=== PATIENT | female | born 1980 | race Caucasian/White ===

== ENCOUNTER → 2020-11-13 09:27 | Outpatient (REF) | payer OTHER, SELFPAY ==
--- NOTE | 2020-11-13 09:31 | CA_ITS ---
Acquisition Time: 2020-11-13 09:55:54 Total Exercise Time: 00:11:15 Test Indications: CHEST PAIN Medications: ADDNALL Protocol: NICKO Max HR: 181 BPM 100% of Pred: 180 BPM Max BP: 130/080 mmHG Max Work Load: 13.4 METS Exercise stress test using Nicko protocol, total of 11 min 15 sec. METS 13.40, and TAPHR up to 100%. Pt tolerated well, denies any anginal sx. EKG with isolated PVC's seen in peak exercise and in recovery. No ischemic changes seen. Normotensive response to exercise. Test reviewed with Dr. Todd. Referred By: Payton Eaton Overread By: Feli Hester
== END ==
LOC: HO.CARD 09:27
PROVIDERS: PCP Internal Medicine; Visit Provider Internal Medicine
DX: R07.9 Chest pain, unspecified (principal)
CPT/HCPCS: 93017

== ENCOUNTER → 2020-12-27 13:05 | Outpatient (REF) | payer OTHER, SELFPAY ==
--- NOTE | 2020-12-27 13:10 | ECG_ITS ---
Hook-up date: 2020-12-27 13:24:00 Duration: 26:13:00 Test Indications: UNSPEC. CHEST PAIN Medications: [id number] QRS complexes 17 Ventricular ectopics which represent <1 % of total QRS comp. 45 Supraventricular ectopics which represent <1 % of total QRS comp. * Paced QRS complexs which represent % of total QRS comp. VENTRICULAR ECTOPY 17 Isolated 0 Bigeminal Cycles 0 Couplets 0 Runs 0 Beats in Runs * Beats LONGEST at * BPM at :: -- * Beats FASTEST at * BPM at :: -- SUPRAVENTRICULAR ECTOPY 19 Isolated 0 Couplets 2 Runs 26 Beats in Runs 22 Beats LONGEST at 84 BPM at 16:07:14 2020-12-27 22 Beats FASTEST at 84 BPM at 16:07:14 2020-12-27 HEART RATES 40 MIN at 04:31:49 2020-12-28 80 AVG 191 MAX at 08:43:37 2020-12-28 LONGEST RR 1.6000 secs at 04:31:41 2020-12-28 S-T LEVELS Channel 1 - 128 mm at 13:24:00 2020-12-27 - 128 mm at 13:24:00 2020-12-27 Channel 2 - 128 mm at 13:24:00 2020-12-27 - 128 mm at 13:24:00 2020-12-27 Channel 3 - 128 mm at 03:24:31 -- - 128 mm at 03:24:31 Underlying rhythm is sinus; Average ventricular rate 80/min; About 25% of the time, ventricular rate >100/min; Rare supraventricular/ventricular ectopy; Patient diary stated that she exercised as usual but could not recreate the feeling that occurred on previous occasions. Referred By: Payton Eaton Overread By: ALLISON JOHNSON
== END ==
LOC: HO.CARD 13:05
PROVIDERS: Visit Provider Internal Medicine
DX: R07.9 Chest pain, unspecified (principal)
CPT/HCPCS: 93225; 93226

== ENCOUNTER 2022-03-11 06:58 | Outpatient (REF) | payer OTHER, SELFPAY ==
[2022-03-11 07:46] LABS: MANUAL DIFF FLAG NO
[2022-03-11 07:56] LABS: Basophils Absolute Auto 0.1 X10*3/uL (0.0-0.2); Eosinophils Absolute Auto 0.1 X10*3/uL (0.0-0.4); Eosinophils Percent Auto 2.9 % (0-4); Hematocrit 37.9 % (37.0-47.0); Hemoglobin 12.3 g/dl (12.0-16.0); Imm Gran Abs Auto 0.01 X10*3/uL (0.00-0.03); Imm Gran Pct Auto 0.2 % (0.0-0.4); Lymphocytes Absolute Auto 1.2 X10*3/uL (1.2-4.9); Mean Corpuscular HGB Conc 32.5 g/dl (31.0-35.0); Mean Corpuscular Hemoglobin 29.6 pg (27.0-33.0); Mean Corpuscular Volume 91.3 fL (80.0-98.0); Mean Platelet Volume 10.7 fL (9.4-12.3); Monocytes Absolute Auto 0.3 X10*3/uL (0.1-1.2); Monocytes Percent Auto 6.5 % (2-11); Neutrophils Percent Auto 63.4 % (45-73); Platelet Count 212 X10*3/uL (160-400); Red Blood Count 4.15 X10*6/uL (4.20-5.50); Red Cell Distribution Width 12.4 % (11.0-16.0); Retic HGB Equivalent 34.2 pg (30.0-35.0); Reticulocytes Absolute 0.042 X10*6/uL (0.026-0.095); White Blood Count 4.8 X10*3/uL (4.8-10.8)
[2022-03-11 08:09] LABS: Estimated Average Glucose 100 mg/dL; Hemoglobin A1c % 5.1 %
[2022-03-11 08:20] LABS: Alanine Aminotransferase 12 U/L (0-31); Albumin Level 4.3 g/dL (3.5-5.0); Alkaline Phosphatase 55 U/L (39-117); Anion Gap 14 (12-20); Aspartate Amino Transferase 14 U/L (5-31); Bilirubin Total 0.9 mg/dL (0.0-1.0); Blood Urea Nitrogen 12 mg/dL (9-16); Carbon Dioxide 24 mmol/L (22-29); Chloride 105 mmol/L (96-108); Cholesterol 209 mg/dL; Estimated Glomerular Filt Rate > 60; Glucose Random 84 mg/dL (60-115); HDL Cholesterol 67 mg/dL; Iron 120 mcg/dL (30-160); LDL Cholesterol Calculated 128 mg/dl; Percent Iron Saturation 32 % (15-50); Potassium 3.8 mmol/L (3.3-5.1); Sodium 139 mmol/L (135-145); Total Iron Binding Capacity 379 mcg/dL (228-428); Total Protein 6.7 g/dL (6.5-8.0); Triglycerides 73 mg/dL; Unsaturated Iron Binding 259 ug/dL
[2022-03-11 08:45] LABS: Ferritin 20 ng/mL (10-250); Free T4 (Free Thyroxine) 0.85 ng/dL (0.71-1.85); Thyroid Stimulating Hormone 1.72 uIU/mL (0.32-4.0); Vitamin D 25-OH Total 31.9 ng/mL (>30)
[2022-03-11 11:16] LABS: Folate 18.2 ng/mL (> or = 4.0); Vitamin B12 614 pg/mL (200-900)
== END 2022-03-11 06:59 | disposition home or self-care (01) ==
LOC: HO.LAB 06:58
PROVIDERS: PCP Internal Medicine; Visit Provider Internal Medicine
DX: F90.0 Attention-deficit hyperactivity disorder, predominantly inattentive type (principal); F41.1 Generalized anxiety disorder; E78.00 Pure hypercholesterolemia, unspecified
CPT/HCPCS: 36415; 80053; 80061; 82306; 82607; 82728; 82746; 83036; 83540; 84439; 84443; 85025; 85045; 86900; 86901

== ENCOUNTER 2022-10-25 12:42 | Outpatient (REF) | payer OTHER, SELFPAY ==
[2022-10-25 14:54] LABS: HCG Quantitative < 2 mIU/mL
== END 2022-10-25 12:43 | disposition home or self-care (01) ==
LOC: HO.HMGCLDS 12:42
PROVIDERS: PCP Internal Medicine; Visit Provider Physician Assistant
DX: Z01.89 Encounter for other specified special examinations (principal); N92.6 Irregular menstruation, unspecified
CPT/HCPCS: 36415; 84702

== ENCOUNTER 2023-05-02 08:16 | Outpatient (REF) | payer OTHER, SELFPAY ==
[2023-05-02 08:31] LABS: MANUAL DIFF FLAG NO
[2023-05-02 08:58] LABS: Basophils Absolute Auto 0.1 X10*3/uL (0.0-0.2); Basophils Percent Auto 1.1 % (0-2); Eosinophils Absolute Auto 0.2 X10*3/uL (0.0-0.4); Eosinophils Percent Auto 3.8 % (0-4); Hematocrit 38.2 % (37.0-47.0); Hemoglobin 12.1 g/dl (12.0-16.0); Lymphocytes Absolute Auto 1.4 X10*3/uL (1.2-4.9); Lymphocytes Percent Auto 31.6 % (20-40); Mean Corpuscular HGB Conc 31.7 g/dl (31.0-35.0); Mean Corpuscular Hemoglobin 28.3 pg (27.0-33.0); Mean Corpuscular Volume 89.3 fL (80.0-98.0); Mean Platelet Volume 10.5 fL (9.4-12.3); Monocytes Absolute Auto 0.5 X10*3/uL (0.1-1.2); Monocytes Percent Auto 10.2 % (2-11); Neutrophils Absolute Auto 2.4 x10*3/uL (2.0-8.3); Neutrophils Percent Auto 53.3 % (45-73); Platelet Count 242 X10*3/uL (160-400); Red Blood Count 4.28 X10*6/uL (4.20-5.50); Red Cell Distribution Width 14.1 % (11.0-16.0); White Blood Count 4.5 X10*3/uL (4.8-10.8)
[2023-05-02 09:46] LABS: Alanine Aminotransferase 11 U/L (0-31); Albumin Level 4.5 g/dL (3.5-5.0); Alkaline Phosphatase 53 U/L (39-117); Anion Gap 16 (12-20); Aspartate Amino Transferase 14 U/L (5-31); Bilirubin Total 0.6 mg/dL (0.0-1.0); Blood Urea Nitrogen 10 mg/dL (9-16); Calcium 9.7 mg/dL (8.4-10.2); Carbon Dioxide 23 mmol/L (22-29); Chloride 105 mmol/L (96-108); Cholesterol 226 mg/dL; Estimated Glomerular Filt Rate > 60; Glucose Random 83 mg/dL (60-115); HDL Cholesterol 73 mg/dL; LDL Cholesterol Calculated 135 mg/dl; Potassium 3.9 mmol/L (3.3-5.1); Sodium 140 mmol/L (135-145); Total Protein 7.3 g/dL (6.5-8.0); Triglycerides 90 mg/dL
[2023-05-02 09:47] LABS: Free T4 (Free Thyroxine) 0.81 ng/dL (0.71-1.85); Thyroid Stimulating Hormone 1.76 uIU/mL (0.32-4.0); Vitamin D 25-OH Total 36.3 ng/mL (>30)
[2023-05-02 10:00] LABS: Folate 15.2 ng/mL (> or = 4.0); Vitamin B12 758 pg/mL (200-900)
== END 2023-05-02 08:17 | disposition home or self-care (01) ==
LOC: HO.LAB 08:16
PROVIDERS: PCP Internal Medicine; Visit Provider Internal Medicine
DX: F90.0 Attention-deficit hyperactivity disorder, predominantly inattentive type (principal); E78.00 Pure hypercholesterolemia, unspecified; E55.9 Vitamin D deficiency, unspecified
CPT/HCPCS: 36415; 80053; 80061; 82306; 82607; 82746; 84439; 84443; 85025

== ENCOUNTER 2023-06-02 11:22 | Outpatient (AMB) | payer OTHER, SELFPAY ==
[2023-06-02 11:26] VITALS: BP 124/72; PULSE 77; O2SAT 96; BMI 20.4
--- NOTE | 2023-06-02 11:26 | MHC.PC.OV ---
Vital Signs 06/02/23 11:26 Height 5 ft 8 in Weight 134 lb BMI 20.4 BP 124/72 Blood Pressure Location Lt brachial Position Sitting Pulse 77 Pulse Source Pulse Oximeter Pulse Oximetry (%) 96 Oxygen Delivery Method Room Air Intake Visit Reasons: 3 MONTH F/U Allergies No Known Allergies Allergy (Verified 06/02/23 11:26) Tobacco use date assessed: 11/06/22 Dental Screening Dental Screen Date: 06/02/23 Did you have a dental visit in the last 12 months?: Yes Did you have a dental problem in the last 6 months where you did not have access to dental care?: No Was dental information given to patient?: Patient has dentist HPI 3 MONTH F/U HPI Details 42-year-old female with a history of ADHD and generalized anxiety disorder coming in for follow-up. Last seen for annual physical in February 2023 and blood work was requested. Patient was reminded about mammogram. [facility] Medical History ADD (attention deficit disorder) Allergic rhinitis Anemia COVID-19 virus infection Leukopenia Surgical History History of wisdom tooth extraction Family History (Updated 02/13/23 @ 11:53 by Payton Eaton MD) Father Hypertension Mother Diabetes Depression Maternal Grandmother Diabetes Maternal Grandfather Diabetes Colon cancer Paternal Grandmother Breast cancer Paternal Grandfather Aneurysm FH: prostate cancer Maternal Uncle Diabetes Family/Other Breast cancer Social History (Updated 02/13/23 @ 11:53 by Payton Eaton MD) Housing: House Alcohol intake: current Alcohol intake frequency: a few times a month Patient Tobacco Use Status: Former Tobacco user Tobacco use type: Cigarette Years Smoked: 17 years old x 2 years e-Cigarette/Vaping Use: Never Used Second Hand Smoke Exposure: No service: No Current occupational status: employed Current occupational exposures/hazards: No Cognitive needs: No Hearing needs: No Vision needs: No Questionnaire PHQ-9 Over the last 2 weeks, how often have you been bothered by any of the following problems? 1. Little interest or pleasure in doing things: not at all 2. Feeling down, depressed, or hopeless: not at all 3. Trouble falling or staying asleep, or sleeping too much: not at all 4. Feeling tired or having little energy: not at all 5. Poor appetite or overeating: not at all 6. Feeling bad about yourself - or that you are a failure or have let yourself or your family down: not at all 7. Trouble concentrating on things, such as reading the newspaper or watching television: not at all 8. Moving or speaking so slowly that other people could have noticed. Or the opposite - being so fidgety or restless that you have been moving around a lot more than usual: not at all 9. Thoughts that you would be better off or of hurting yourself in some way: not at all Total score: 0 Depression Screening Interpretation: Negative Source: Developed by Drs. Jay Iverson, Radha Langford, Chito Ortiz and colleagues, with an educational jory from [employer]. Thrive Questionnaire Date Thrive assessed: 02/13/23 AUDIT C Alcohol Use Questionnaire (AUDIT-C) 1. How often do you have a drink containing alcohol?: 2-4 times a month 2. How many drinks containing alcohol do you have on a typical day when you are drinking?: 1 or 2 3. How often do you have six or more drinks on one occasion?: Never Total Score: 2 MIKO-7 AMB Questionnaire MIKO-7 Date MIKO - 7 assessed: 11/06/22 Source: Developed by Drs. Jay Iverson, Radha Langford, Chito Ortiz and colleagues, with an educational jory from [employer]. Physical exam (Primary Care) Vital Signs: Oxygen Delivery Method Room Air 06/02/23 11:26 Tobacco/Smoking Status: Tobacco use Status Tobacco use date assessed 11/06/22 02/13/23 11:22 Patient Tobacco Use Status Former Tobacco user 02/13/23 11:53 Tobacco use type Cigarette 02/13/23 11:53 e-Cigarette/Vaping Use Never Used 02/13/23 11:53 Depression Screening Interpretation: Negative Thrive Assessment: Date of Thrive Assessment Date Thrive assessed 02/13/23 02/13/23 11:22 Const General: alert; No acute distress Eyes Conjunctivae: conjunctivae normal Resp Auscultation: clear to auscultation bilaterally Cardio Rate: regular rate Rhythm: regular rhythm GI Inspection: Yes normal to inspection Extrem General: Yes normal to inspection and No edema Assessment and Plan Assessment & Plan (1) ADD (attention deficit disorder): Comment: has therapist monthly Code(s): F98.8 - Other specified behavioral and emotional disorders with onset usually occurring in childhood and adolescence Qualifiers: Attention deficit-hyperactivity disorder type: predominantly inattentive Hyperactivity presence: present Qualified Code(s): F90.0 - Attention-deficit hyperactivity disorder, predominantly inattentive type Plan: Continue present medication and therapy (2) Generalized anxiety disorder: Comment: Private therapist Code(s): F41.1 - Generalized anxiety disorder Plan: Continue with counseling and therapy (3) Hypercholesterolemia: Code(s): E78.00 - Pure hypercholesterolemia, unspecified Plan: Avoid fried foods, chicken skin, eggs, butter margarine, pastries and meat. Be it pork or beef they have a lot of cholesterol LDL goal of less than 130 and triglyceride of less than 150 (4) Breast cancer screening by mammogram: Code(s): Z12.31 - Encounter for screening mammogram for malignant neoplasm of breast Plan: Patient's reminded about mammogram Coding Level of Care Code Est Pt Level 4 (88964) Diagnoses ADD (attention deficit disorder) F90.0 Attention deficit-hyperactivity disorder type: predominantly inattentive Hyperactivity presence: present Generalized anxiety disorder F41.1 Hypercholesterolemia E78.00 Breast cancer screening by mammogram Z12.31
== END 2023-06-02 11:48 | disposition home or self-care (01) ==
PROVIDERS: PCP Internal Medicine; Visit Provider Internal Medicine
DX: F90.0 Attention-deficit hyperactivity disorder, predominantly inattentive type (principal); F41.1 Generalized anxiety disorder; E78.00 Pure hypercholesterolemia, unspecified; Z12.31 Encounter for screening mammogram for malignant neoplasm of breast
CPT/HCPCS: 99214

== ENCOUNTER 2023-09-16 10:56 | Outpatient (AMB) | payer OTHER, SELFPAY ==
[2023-09-16 10:58] VITALS: BP 114/76; PULSE 58; O2SAT 96; BMI 21.0
--- NOTE | 2023-09-16 10:58 | A.OFFPC_ITS ---
Vital Signs 09/16/23 10:58 Height 5 ft 8 in Weight 138 lb 2 oz BMI 21.0 BP 114/76 Blood Pressure Location Lt brachial Position Sitting Pulse 58 Pulse Source Pulse Oximeter Pulse Oximetry (%) 96 Oxygen Delivery Method Room Air Intake Visit Reasons: 3mon F/U Manager [employer] Required: No Accompanied by: Self / Same As Patient Allergies No Known Allergies Allergy (Verified 09/16/23 10:59) Tobacco use date assessed: 11/06/22 HPI 3mon F/U HPI Details 43-year-old female with a history of ADD generalized anxiety disorder and hypercholesterolemia last seen in May 2023. Patient is here for follow- up. Patient has been advised mammogram. [facility] Medical History ADD (attention deficit disorder) Allergic rhinitis Anemia COVID-19 virus infection Leukopenia Surgical History History of wisdom tooth extraction Family History Father Hypertension Mother Diabetes Depression Maternal Grandmother Diabetes Maternal Grandfather Diabetes Colon cancer Paternal Grandmother Breast cancer Paternal Grandfather Aneurysm FH: prostate cancer Maternal Uncle Diabetes Family/Other Breast cancer Social History Housing: House Alcohol intake: current Alcohol intake frequency: a few times a month Patient Tobacco Use Status: Former Tobacco user Tobacco use type: Cigarette Years Smoked: 17 years old x 2 years e-Cigarette/Vaping Use: Never Used Second Hand Smoke Exposure: No service: No Current occupational status: employed Current occupational exposures/hazards: No Cognitive needs: No Hearing needs: No Vision needs: No Questionnaire Thrive Questionnaire Date Thrive assessed: 02/13/23 MIKO-7 AMB Questionnaire MIKO-7 Date MIKO - 7 assessed: 11/06/22 Source: Developed by Drs. Jay Iverson, Radha Langford, Chito Ortiz and colleagues, with an educational jory from [employer]. Physical exam (Primary Care) Vital Signs: Oxygen Delivery Method Room Air 09/16/23 10:58 BMI result Body Mass Index 21.0 Tobacco/Smoking Status: Tobacco use Status Tobacco use date assessed 11/06/22 06/02/23 11:28 Patient Tobacco Use Status Former Tobacco user 06/02/23 11:28 Tobacco use type Cigarette 06/02/23 11:28 e-Cigarette/Vaping Use Never Used 06/02/23 11:28 Thrive Assessment: Date of Thrive Assessment Date Thrive assessed 02/13/23 06/02/23 11:28 Const General: alert; No acute distress Eyes Conjunctivae: conjunctivae normal Resp Auscultation: clear to auscultation bilaterally Cardio Rate: regular rate Rhythm: regular rhythm GI Inspection: Yes normal to inspection Extrem General: Yes normal to inspection and No edema Assessment and Plan Assessment & Plan (1) ADD (attention deficit disorder): Comment: has therapist monthly Code(s): F98.8 - Other specified behavioral and emotional disorders with onset usually occurring in childhood and adolescence Qualifiers: Attention deficit-hyperactivity disorder type: predominantly inattentive Hyperactivity presence: present Qualified Code(s): F90.0 - Attention-deficit hyperactivity disorder, predominantly inattentive type Plan: Continue with present medication and counseling (2) Generalized anxiety disorder: Comment: Private therapist Code(s): F41.1 - Generalized anxiety disorder Plan: Continue with counseling and therapy (3) Hypercholesterolemia: Code(s): E78.00 - Pure hypercholesterolemia, unspecified Plan: Avoid fried foods, chicken skin, eggs, butter margarine, pastries and meat. Be it pork or beef they have a lot of cholesterol Coding Level of Care Code Est Pt Level 4 (43143) Diagnoses Attention deficit hyperactivity disorder (ADHD), predominantly inattentive type F90.0 Attention deficit-hyperactivity disorder type: predominantly inattentive Hyperactivity presence: present Generalized anxiety disorder F41.1 Hypercholesterolemia E78.00
== END 2023-09-16 11:13 | disposition home or self-care (01) ==
PROVIDERS: PCP Internal Medicine; Visit Provider Internal Medicine
DX: F90.0 Attention-deficit hyperactivity disorder, predominantly inattentive type (principal); F41.1 Generalized anxiety disorder; E78.00 Pure hypercholesterolemia, unspecified
CPT/HCPCS: 99214

== ENCOUNTER 2024-01-05 10:38 | Outpatient (AMB) | payer OTHER, SELFPAY ==
[2024-01-05 10:39] VITALS: BP 128/72; PULSE 65; O2SAT 98; BMI 21.1
--- NOTE | 2024-01-05 10:39 | A.OFFPC_ITS ---
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 Patient is here for med check. COUNTS INCLUDE 234 BEDS AT THE [facility] Medical History (Updated 01/05/24 @ 10:57 by Payton Eaton MD) Breast cancer screening by mammogram COVID-19 virus infection Leukopenia Allergic rhinitis ADD (attention deficit disorder) Anemia Surgical History History of wisdom tooth extraction Family History Father Hypertension Mother Diabetes Depression Maternal Grandmother Diabetes Maternal Grandfather Diabetes Colon cancer Paternal Grandmother Breast cancer Paternal Grandfather Aneurysm FH: prostate cancer Maternal Uncle Diabetes Family/Other Breast cancer Social History Housing: House Alcohol intake: current Alcohol intake frequency: a few times a month Patient Tobacco Use Status: Former Tobacco user Tobacco use type: Cigarette Years Smoked: 17 years old x 2 years e-Cigarette/Vaping Use: Never Used Second Hand Smoke Exposure: No service: No Current occupational status: employed Current occupational exposures/hazards: No Cognitive needs: No Hearing needs: No Vision needs: No Questionnaire PHQ-9 Over the last 2 weeks, how often have you been bothered by any of the following problems? 1. Little interest or pleasure in doing things: not at all 2. Feeling down, depressed, or hopeless: not at all 3. Trouble falling or staying asleep, or sleeping too much: not at all 4. Feeling tired or having little energy: not at all 5. Poor appetite or overeating: not at all 6. Feeling bad about yourself - or that you are a failure or have let yourself or your family down: not at all 7. Trouble concentrating on things, such as reading the newspaper or watching television: not at all 8. Moving or speaking so slowly that other people could have noticed. Or the opposite - being so fidgety or restless that you have been moving around a lot more than usual: not at all 9. Thoughts that you would be better off or of hurting yourself in some way: not at all Total score: 0 Depression Screening Interpretation: Negative Depression Screening Done: Yes Source: Developed by Drs. Jay Iverson, Radha Langford, Chito Ortiz and colleagues, with an educational jory from [employer]. Thrive Questionnaire Date Thrive assessed: 02/13/23 AUDIT C Alcohol Use Questionnaire (AUDIT-C) 1. How often do you have a drink containing alcohol?: 2-4 times a month 2. How many drinks containing alcohol do you have on a typical day when you are drinking?: 1 or 2 3. How often do you have six or more drinks on one occasion?: Never Total Score: 2 MIKO-7 AMB Questionnaire MIKO-7 Date MIKO - 7 assessed: 01/05/24 Source: Developed by Drs. Jay Iverson, Radha Langford, Chito Ortiz and colleagues, with an educational jory from [employer]. Physical exam (Primary Care) Vital Signs: Last Vital Signs Pulse 65 01/05/24 10:39 BP 128/72 01/05/24 10:39 Pulse Ox 98 01/05/24 10:39 Oxygen Delivery Method Room Air 01/05/24 10:39 BMI result Body Mass Index 21.1 Tobacco/Smoking Status: Tobacco use Status Tobacco use date assessed 01/05/24 01/05/24 10:45 Patient Tobacco Use Status Former Tobacco user 01/05/24 10:45 Tobacco use type Cigarette 01/05/24 10:45 e-Cigarette/Vaping Use Never Used 01/05/24 10:45 PHQ-9: PHQ-9 Score PHQ-9: Total score 0 01/05/24 10:45 Depression Screening Interpretation: Negative Thrive Assessment: Date of Thrive Assessment Date Thrive assessed 02/13/23 01/05/24 10:45 Const General: alert; No acute distress Eyes Conjunctivae: conjunctivae normal Resp Auscultation: clear to auscultation bilaterally Cardio Rate: regular rate Rhythm: regular rhythm GI Inspection: Yes normal to inspection Extrem General: Yes normal to inspection and No edema Assessment and Plan Assessment & Plan (1) ADD (attention deficit disorder): Comment: has therapist monthly Code(s): F98.8 - Other specified behavioral and emotional disorders with onset usually occurring in childhood and adolescence Qualifiers: Hyperactivity presence: present Attention deficit-hyperactivity disorder type: predominantly inattentive Qualified Code(s): F90.0 - Attention- deficit hyperactivity disorder, predominantly inattentive type Plan: Continue with present medication and counseling. (2) Generalized anxiety disorder: Comment: Private therapist Code(s): F41.1 - Generalized anxiety disorder Plan: Continue with counseling (3) Nail dystrophy: Code(s): L60.3 - Nail dystrophy Plan: Will continue to monitor for now Coding Level of Care Code Est Pt Level 3 (92366) Diagnoses Attention deficit hyperactivity disorder (ADHD), predominantly inattentive type F90.0 Hyperactivity presence: present Attention deficit-hyperactivity disorder type: predominantly inattentive Generalized anxiety disorder F41.1 Nail dystrophy L60.3
== END 2024-01-05 11:04 | disposition home or self-care (01) ==
PROVIDERS: PCP Internal Medicine; Visit Provider Internal Medicine
DX: F90.0 Attention-deficit hyperactivity disorder, predominantly inattentive type (principal); F41.1 Generalized anxiety disorder; L60.3 Nail dystrophy
CPT/HCPCS: 99213

== ENCOUNTER 2024-03-17 11:33 | Outpatient (AMB) | payer OTHER, SELFPAY ==
[2024-03-17 11:43] VITALS: BP 124/86; PULSE 60; O2SAT 98; BMI 21.0
--- NOTE | 2024-03-17 11:43 | A.OFFPC_ITS ---
Vital Signs 03/17/24 11:43 Height 5 ft 8 in Weight 138 lb 0.4 oz BMI 21.0 BP 124/86 Blood Pressure Location Lt brachial Position Sitting Pulse 60 Pulse Source Pulse Oximeter Pulse Oximetry (%) 98 Oxygen Delivery Method Room Air Intake Visit Reasons: Annual Exam Herb Grower Required: No Allergies No Known Allergies Allergy (Verified 03/17/24 11:44) Medication List - Last Reconciled 03/17/24 by Payton Eaton MD ascorbate calcium (vitamin C) 500 mg PO DAILY hfvfzn-ltxc-znnr-levomef-silic 10-50-500-0.5 mg caps PO dextroamphetamine-amphetamine 20 mg ER (Adderall XR) 20 mg PO DAILY ferrous sulfate (Feosol) 325 mg PO DAILY [GYMEMMA ] [KAVA KAVA ] loratadine (Claritin) 10 mg PO DAILY PRN multivitamin 1 tab PO DAILY [RESCUE REMEDY ] Tobacco use date assessed: 03/17/24 Dental Screening Dental Screen Date: 03/17/24 Did you have a dental visit in the last 12 months?: Yes Did you have a dental problem in the last 6 months where you did not have access to dental care?: No Was dental information given to patient?: Patient has dentist HPI Annual Exam HPI Details 43-year-old female with ADD and generali zed anxiety disorder coming in for physical exam last seen in 01/24/2024. Mammogram is up-to-date [facility] Medical History (Updated 01/05/24 @ 10:57 by Payton Eaton MD) Breast cancer screening by mammogram COVID-19 virus infection Leukopenia Allergic rhinitis ADD (attention deficit disorder) Anemia Surgical History History of wisdom tooth extraction Family History (Updated 03/17/24 @ 12:12 by Payton Eaton MD) Father Hypertension Mother Diabetes Depression Maternal Grandmother Diabetes Maternal Grandfather Diabetes Colon cancer Paternal Grandmother Breast cancer Paternal Grandfather Aneurysm FH: prostate cancer Maternal Uncle Diabetes Family/Other Breast cancer Maternal Grandmother FH: prostate cancer Social History (Updated 03/17/24 @ 12:13 by Payton Eaton MD) Housing: House Alcohol intake: current Alcohol intake frequency: a few times a month Comment: 2 x a month 2 drinks Patient Tobacco Use Status: Former Tobacco user Tobacco use type: Cigarette Years Smoked: 17 years old x 2 years e-Cigarette/Vaping Use: Never Used Second Hand Smoke Exposure: No service: No Current occupational status: employed Current occupational exposures/hazards: No Cognitive needs: No Hearing needs: No Vision needs: No Questionnaire PHQ-9 Over the last 2 weeks, how often have you been bothered by any of the following problems? 1. Little interest or pleasure in doing things: not at all 2. Feeling down, depressed, or hopeless: not at all 3. Trouble falling or staying asleep, or sleeping too much: not at all 4. Feeling tired or having little energy: not at all 5. Poor appetite or overeating: not at all 6. Feeling bad about yourself - or that you are a failure or have let yourself or your family down: not at all 7. Trouble concentrating on things, such as reading the newspaper or watching television: not at all 8. Moving or speaking so slowly that other people could have noticed. Or the opposite - being so fidgety or restless that you have been moving around a lot more than usual: not at all 9. Thoughts that you would be better off or of hurting yourself in some way: not at all Total score: 0 Depression Screening Interpretation: Negative Depression Screening Done: Yes Source: Developed by Drs. Jay Iverson, Radha Langford, Chito Ortiz and colleagues, with an educational jory from [employer]. Thrive Questionnaire Date Thrive assessed: 03/17/24 I am a: Patient What is your living situation today?: I have a steady place to live Within the past 12 months, did the food you bought not last and you didn't have the money to get more?: Never true Within the past 12 months, did you worry whether your food would run out before you got money to buy more?: Never true Do you have trouble paying for medicines?: No Do you have trouble getting transportation to medical appointments?: No Do you have trouble paying your heating and electricity bill?: No Do you have trouble taking care of your child, family member or friend?: No Do you have trouble with day-to-day activities such as bathing, preparing meals, shopping, managing finances, etc.?: No Are you currently unemployed and looking for a job?: No Are you interested in more education?: No Please select the resources that you would like help with: None Currently or been in a relationship where the following occur: no concerns reported THRIVE Score: 0 AUDIT C Alcohol Use Questionnaire (AUDIT-C) 1. How often do you have a drink containing alcohol?: 2-4 times a month 2. How many drinks containing alcohol do you have on a typical day when you are drinking?: 1 or 2 3. How often do you have six or more drinks on one occasion?: Never Total Score: 2 MIKO-7 AMB Questionnaire MIKO-7 Date MIKO - 7 assessed: 03/17/24 Feeling nervous, anxious, or on edge: 0 = Not at all Not being able to stop or control worryin = Not at all Worrying too much about different things: 0 = Not at all Trouble relaxin = Not at all Being so restless that it is hard to sit still: 0 = Not at all Becoming easily annoyed or irritable: 0 = Not at all Feeling afraid as if something awful might happen: 0 = Not at all Total MIKO-7 score (0-4 normal; 5-9 mild; 10-14 moderate; 15-21 severe): 0 Source: Developed by Drs. Jay Iverson, Radha Langford, Chito Ortiz and colleagues, with an educational jory from [employer]. MIKO-7 Assessment Billing MIKO-7 Assessment Tool: MIKO-7 Assessment 09774 Review of Systems Const Denies poor appetite and Denies weakness Eyes Denies no additional complaints ENT Reports Normal hearing present, Denies dizziness, Denies nasal congestion, Denies tinnitus and Denies sore throat Card Denies chest pain, Denies syncope, Denies rapid heart rate and Denies dyspnea Resp Denies cough and Denies dyspnea GI Denies change in stool character, Reports constipation, Denies diarrhea, Denies nausea and Denies vomiting Denies urinary frequency, Denies difficulty voiding and Denies dysuria Neuro Reports Normal hearing present, Denies confusion, Denies dizziness, Denies syncope and Denies weakness Psych Denies confusion Physical exam (Primary Care) Vital Signs: Last Vital Signs Pulse 60 03/17/24 11:43 BP 124/86 03/17/24 11:43 Pulse Ox 98 03/17/24 11:43 Oxygen Delivery Method Room Air 03/17/24 11:43 BMI result Body Mass Index 21.0 Tobacco/Smoking Status: Tobacco use Status Tobacco use date assessed 03/17/24 03/17/24 11:44 Patient Tobacco Use Status Former Tobacco user 03/17/24 11:44 Tobacco use type Cigarette 03/17/24 11:44 e-Cigarette/Vaping Use Never Used 03/17/24 11:44 PHQ-9: PHQ-9 Score PHQ-9: Total score 0 03/17/24 11:49 Depression Screening Interpretation: Negative Thrive Assessment: Date of Thrive Assessment Date Thrive assessed 03/17/24 03/17/24 11:44 Currently or been in a relationship where the following occur: no concerns reported Const General: No confusion Orientation/consciousness: No confusion HENMT Head: Yes normocephalic Ears: external ears normal and TM's normal bilaterally Face and sinus: Yes normal facial exam Mouth: moist mucous membranes Throat: Yes tonsils normal Eyes Conjunctivae: conjunctivae normal Pupils: Equal, round and reactive pupils present and Pupil accommodation reflex normal Direct Ophthalmoscopy: normal light reflex Neck Neck: No lymphadenopathy Thyroid: Thyroid normal Chest Chest palpation & inspection: normal inspection of the chest Resp Effort & Inspection: normal respiratory effort and no audible wheezes Auscultation: clear to auscultation bilaterally, no crackles, no wheezes and lung sounds not diminished Cardio Rate: regular rate Rhythm: regular rhythm Peripheral pulses: radial pulses present and dorsalis pedis present GI Palpation (GI): no masses Auscultation: normal bowel sounds and normoactive bowel sounds Rectal Exam - Female: deferred Skin General skin exam: no rashes or lesions noted Rashes: no rashes Neuro General: No confusion Cranial nerves: Yes Equal, round and reactive pupils present and Yes Normal hearing present Cognition (Neuro): normal cognition Gait exam (Neuro): Normal gait present Motor exam (neuro): 5/5 motor strength present throughout Deep tendon reflexes (DTR's): Right brachioradialis reflex intensity grade: 2+, Left brachioradialis reflex intensity grade: 2+, Right patellar reflex intensity grade: 2+ and Left patellar reflex intensity grade: 2+ Extrem General: No edema Assessment and Plan Assessment & Plan (1) Annual physical exam: Code(s): Z00.00 - Encounter for general adult medical examination without abnormal findings Plan: Patient is advised to eat healthy, keep well hydrated, keep active and have adequate sleep. (2) ADD (attention deficit disorder): Comment: has therapist monthly Code(s): F98.8 - Other specified behavioral and emotional disorders with onset usually occurring in childhood and adolescence Qualifiers: Hyperactivity presence: present Attention deficit-hyperactivity disorder type: predominantly inattentive Qualified Code(s): F90.0 - Attention- deficit hyperactivity disorder, predominantly inattentive type Plan: Continue with present medication (3) Generalized anxiety disorder: Comment: Private therapist Code(s): F41.1 - Generalized anxiety disorder Plan: Stable (4) Hypercholesterolemia: Code(s): E78.00 - Pure hypercholesterolemia, unspecified Plan: Avoid fried foods, chicken skin, eggs, butter margarine, pastries and meat. Be it pork or beef they have a lot of cholesterol 04/2023 last blood work LDL goal of less than 130 and triglyceride of less than 150 Coding Level of Care Code Est Pt Prev Care 40-64y(95755) Diagnoses Annual physical exam Z00.00 Attention deficit hyperactivity disorder (ADHD), predominantly inattentive type F90.0 Hyperactivity presence: present Attention deficit-hyperactivity disorder type: predominantly inattentive Generalized anxiety disorder F41.1 Hypercholesterolemia E78.00 Additional Codes MIKO-7 Assessment Billing - MIKO-7 Assessment Tool: MIKO-7 Assessment [id number] ([id number])
== END 2024-03-17 12:27 | disposition home or self-care (01) ==
PROVIDERS: PCP Internal Medicine; Visit Provider Internal Medicine
DX: Z00.00 Encounter for general adult medical examination without abnormal findings (principal); F90.0 Attention-deficit hyperactivity disorder, predominantly inattentive type; F41.1 Generalized anxiety disorder; E78.00 Pure hypercholesterolemia, unspecified
CPT/HCPCS: 99396

== ENCOUNTER 2024-06-17 09:29 | Outpatient (AMB) | payer OTHER, SELFPAY ==
[2024-06-17 09:34] VITALS: BP 122/62; PULSE 71; O2SAT 98; BMI 20.1
--- NOTE | 2024-06-17 09:34 | MHC.PC.OV ---
Vital Signs 06/17/24 09:34 Height 5 ft 8 in Weight 132 lb BMI 20.1 BP 122/62 Blood Pressure Location Lt brachial Position Sitting Pulse 71 Pulse Source Pulse Oximeter Pulse Oximetry (%) 98 Oxygen Delivery Method Room Air Intake Visit Reasons: 3M med Follow Up Allergies No Known Allergies Allergy (Verified 06/17/24 09:34) Tobacco use date assessed: 03/17/24 Dental Screening Dental Screen Date: 03/17/24 HPI 3M med Follow Up HPI Details 43-year-old female with attention deficit disorder generalized anxiety disorder hypercholesterolemia last seen in March 2024 coming in for follow-up. Patient is up-to-date with mammogram [facility] Medical History (Updated 01/05/24 @ 10:57 by Payton Eaton MD) Breast cancer screening by mammogram COVID-19 virus infection Leukopenia Allergic rhinitis ADD (attention deficit disorder) Anemia Surgical History History of wisdom tooth extraction Family History (Updated 03/17/24 @ 12:12 by Payton Eaton MD) Father Hypertension Mother Diabetes Depression Maternal Grandmother Diabetes Maternal Grandfather Diabetes Colon cancer Paternal Grandmother Breast cancer Paternal Grandfather Aneurysm FH: prostate cancer Maternal Uncle Diabetes Family/Other Breast cancer Maternal Grandmother FH: prostate cancer Social History (Updated 03/17/24 @ 12:13 by Payton Eaton MD) Housing: House Alcohol intake: current Alcohol intake frequency: a few times a month Comment: 2 x a month 2 drinks Patient Tobacco Use Status: Former Tobacco user Tobacco use type: Cigarette Years Smoked: 17 years old x 2 years e-Cigarette/Vaping Use: Never Used Second Hand Smoke Exposure: No service: No Current occupational status: employed Current occupational exposures/hazards: No Cognitive needs: No Hearing needs: No Vision needs: No Questionnaire PHQ-9 Over the last 2 weeks, how often have you been bothered by any of the following problems? 1. Little interest or pleasure in doing things: not at all 2. Feeling down, depressed, or hopeless: not at all 3. Trouble falling or staying asleep, or sleeping too much: not at all 4. Feeling tired or having little energy: not at all 5. Poor appetite or overeating: not at all 6. Feeling bad about yourself - or that you are a failure or have let yourself or your family down: not at all 7. Trouble concentrating on things, such as reading the newspaper or watching television: not at all 8. Moving or speaking so slowly that other people could have noticed. Or the opposite - being so fidgety or restless that you have been moving around a lot more than usual: not at all 9. Thoughts that you would be better off or of hurting yourself in some way: not at all Total score: 0 Depression Screening Interpretation: Negative Depression Screening Done: Yes Source: Developed by Drs. Jay Iverson, Radha Langford, Chito Ortiz and colleagues, with an educational jory from [employer]. Thrive Questionnaire Date Thrive assessed: 03/17/24 AUDIT C Alcohol Use Questionnaire (AUDIT-C) 1. How often do you have a drink containing alcohol?: 2-4 times a month 2. How many drinks containing alcohol do you have on a typical day when you are drinking?: 1 or 2 3. How often do you have six or more drinks on one occasion?: Never Total Score: 2 MIKO-7 AMB Questionnaire MIKO-7 Date MIKO - 7 assessed: 03/17/24 Source: Developed by Drs. Jay Iverson, Radha Langford, Chito Ortiz and colleagues, with an educational jory from [employer]. Physical exam (Primary Care) Vital Signs: Last Vital Signs Pulse 71 06/17/24 09:34 BP 122/62 06/17/24 09:34 Pulse Ox 98 06/17/24 09:34 Oxygen Delivery Method Room Air 06/17/24 09:34 BMI result Body Mass Index 20.1 Tobacco/Smoking Status: Tobacco use Status Tobacco use date assessed 03/17/24 06/17/24 09:40 Patient Tobacco Use Status Former Tobacco user 06/17/24 09:40 Tobacco use type Cigarette 06/17/24 09:40 e-Cigarette/Vaping Use Never Used 06/17/24 09:40 PHQ-9: PHQ-9 Score PHQ-9: Total score 0 06/17/24 09:40 Depression Screening Interpretation: Negative Thrive Assessment: Date of Thrive Assessment Date Thrive assessed 03/17/24 06/17/24 09:40 Const General: alert; No acute distress Eyes Conjunctivae: conjunctivae normal Resp Auscultation: clear to auscultation bilaterally Cardio Rate: regular rate Rhythm: regular rhythm GI Inspection: Yes normal to inspection Extrem General: Yes normal to inspection and No edema Assessment and Plan Assessment & Plan (1) ADD (attention deficit disorder): Comment: has therapist monthly Code(s): F98.8 - Other specified behavioral and emotional disorders with onset usually occurring in childhood and adolescence Qualifiers: Hyperactivity presence: present Attention deficit-hyperactivity disorder type: predominantly inattentive Qualified Code(s): F90.0 - Attention-deficit hyperactivity disorder, predominantly inattentive type Plan: Continue with present medication (2) Generalized anxiety disorder: Comment: Private therapist Code(s): F41.1 - Generalized anxiety disorder Plan: Stable (3) Hypercholesterolemia: Code(s): E78.00 - Pure hypercholesterolemia, unspecified Plan: Avoid fried foods, chicken skin, eggs, butter margarine, pastries and meat. Be it pork or beef they have a lot of cholesterol Orders: Orders Lipid Panel Today E78.00 - Pure hypercholesterolemia, unspecified, F90.0 - Attention-deficit hyperactivity disorder, predominantly inattentive type Vitamin B12 and Folate Today F90.0 - Attention-deficit hyperactivity disorder, predominantly inattentive type Vitamin D 25-OH Total Today F90.0 - Attention-deficit hyperactivity disorder, predominantly inattentive type Complete Blood Count Auto Diff Today F90.0 - Attention-deficit hyperactivity disorder, predominantly inattentive type Comprehensive Met. Panel Today F90.0 - Attention-deficit hyperactivity disorder, predominantly inattentive type Thyroid Stimulating Hormone Today F90.0 - Attention-deficit hyperactivity disorder, predominantly inattentive type Free T4 (Free Thyroxine) Today F90.0 - Attention-deficit hyperactivity disorder, predominantly inattentive type Coding Level of Care Code Est Pt Level 4 (34540) Diagnoses Attention deficit hyperactivity disorder (ADHD), predominantly inattentive type F90.0 Hyperactivity presence: present Attention deficit-hyperactivity disorder type: predominantly inattentive Generalized anxiety disorder F41.1 Hypercholesterolemia E78.00
== END 2024-06-17 10:10 | disposition home or self-care (01) ==
PROVIDERS: PCP Internal Medicine; Visit Provider Internal Medicine
DX: F90.0 Attention-deficit hyperactivity disorder, predominantly inattentive type (principal); F41.1 Generalized anxiety disorder; E78.00 Pure hypercholesterolemia, unspecified
CPT/HCPCS: 99214

== ENCOUNTER 2024-10-01 14:47 | Outpatient (AMB) | payer OTHER, SELFPAY ==
[2024-10-01 15:02] VITALS: BP 118/80; PULSE 80; O2SAT 98; BMI 20.8
--- NOTE | 2024-10-01 15:02 | MHC.PC.OV ---
Vital Signs 10/01/24 15:02 Height 5 ft 8 in Weight 136 lb 8 oz BMI 20.8 BP 118/80 Blood Pressure Location Lt brachial Position Sitting Pulse 80 Pulse Source Pulse Oximeter Pulse Oximetry (%) 98 Oxygen Delivery Method Room Air Intake Visit Reasons: 3M Med Follow Up Allergies No Known Allergies Allergy (Verified 06/17/24 09:34) Tobacco use date assessed: 03/17/24 Dental Screening Dental Screen Date: 03/17/24 HPI 3M Med Follow Up HPI Details The patient is a 44-year-old female presenting with foot pain and management of onychomycosis. The patient reports intermittent foot pain, which occasionally increases in intensity but has not been severe recently. She indicates that the foot pain has improved following a change in footwear, suggesting a potential association with her previous shoes. Regarding onychomycosis, the patient was prescribed ciclopirox topical solution but has not initiated treatment yet. She expressed uncertainty about using it with nail spanish, which was clarified during the visit. It was advised that the antifungal spanish should be applied daily, removed weekly with alcohol, and combined with regular nail trimming until nail clearance is achieved. Additionally, the patient discussed her anxiety symptoms, which have been present since 2019. These episodes have been exacerbated by familial stress, hormonal fluctuations, and previous environmental issues in her home. She described periods of heightened anxiety and emotional distress, particularly when focusing on perceived past mistakes. The patient has attempted using non-prescription remedies like oils and expressed interest in trying CBD products for symptomatic relief. The patient prefers to use as-needed interventions rather than daily medication for anxiety. [facility] Medical History (Updated 10/01/24 @ 15:16 by Payton Eaton MD) Breast cancer screening by mammogram COVID-19 virus infection Leukopenia Allergic rhinitis ADD (attention deficit disorder) Anemia Surgical History History of wisdom tooth extraction Family History (Updated 03/17/24 @ 12:12 by Payton Eaton MD) Father Hypertension Mother Diabetes Depression Maternal Grandmother Diabetes Maternal Grandfather Diabetes Colon cancer Paternal Grandmother Breast cancer Paternal Grandfather Aneurysm FH: prostate cancer Maternal Uncle Diabetes Family/Other Breast cancer Maternal Grandmother FH: prostate cancer Social History (Updated 03/17/24 @ 12:13 by Payton Eaton MD) Housing: House Alcohol intake: current Alcohol intake frequency: a few times a month Comment: 2 x a month 2 drinks Patient Tobacco Use Status: Former Tobacco user Tobacco use type: Cigarette Years Smoked: 17 years old x 2 years e-Cigarette/Vaping Use: Never Used Second Hand Smoke Exposure: No service: No Current occupational status: employed Current occupational exposures/hazards: No Cognitive needs: No Hearing needs: No Vision needs: No Questionnaire PHQ-9 Over the last 2 weeks, how often have you been bothered by any of the following problems? 1. Little interest or pleasure in doing things: not at all 2. Feeling down, depressed, or hopeless: not at all 3. Trouble falling or staying asleep, or sleeping too much: not at all 4. Feeling tired or having little energy: not at all 5. Poor appetite or overeating: not at all 6. Feeling bad about yourself - or that you are a failure or have let yourself or your family down: not at all 7. Trouble concentrating on things, such as reading the newspaper or watching television: not at all 8. Moving or speaking so slowly that other people could have noticed. Or the opposite - being so fidgety or restless that you have been moving around a lot more than usual: not at all 9. Thoughts that you would be better off or of hurting yourself in some way: not at all Total score: 0 Depression Screening Interpretation: Negative Depression Screening Done: Yes Source: Developed by Drs. Jay Iverson, Radha Langford, Chito Ortiz and colleagues, with an educational jory from [employer]. Thrive Questionnaire Date Thrive assessed: 10/01/24 I am a: Patient What is your living situation today?: I have a steady place to live Within the past 12 months, did the food you bought not last and you didn't have the money to get more?: Never true Within the past 12 months, did you worry whether your food would run out before you got money to buy more?: Never true Do you have trouble paying for medicines?: No Do you have trouble getting transportation to medical appointments?: No Do you have trouble paying your heating and electricity bill?: No Do you have trouble taking care of your child, family member or friend?: No Do you have trouble with day-to-day activities such as bathing, preparing meals, shopping, managing finances, etc.?: No Are you currently unemployed and looking for a job?: No Are you interested in more education?: No Please select the resources that you would like help with: None Currently or been in a relationship where the following occur: No concerns reported THRIVE Score: 0 AUDIT C Alcohol Use Questionnaire (AUDIT-C) 1. How often do you have a drink containing alcohol?: 2-4 times a month 2. How many drinks containing alcohol do you have on a typical day when you are drinking?: 1 or 2 3. How often do you have six or more drinks on one occasion?: Never Total Score: 2 MIKO-7 AMB Questionnaire MIKO-7 Date MIKO - 7 assessed: 10/01/24 Feeling nervous, anxious, or on edge: 0 = Not at all Not being able to stop or control worryin = Not at all Worrying too much about different things: 0 = Not at all Trouble relaxin = Not at all Being so restless that it is hard to sit still: 0 = Not at all Becoming easily annoyed or irritable: 0 = Not at all Feeling afraid as if something awful might happen: 0 = Not at all Total MIKO-7 score (0-4 normal; 5-9 mild; 10-14 moderate; 15-21 severe): 0 Source: Developed by Drs. Jay Iverson, Radha Langford, Chito Ortiz and colleagues, with an educational jory from [employer]. MIKO-7 Assessment Billing MIKO-7 Assessment Tool: MIKO-7 Assessment 86582 Physical exam (Primary Care) Vital Signs: Last Vital Signs Pulse 80 10/01/24 15:02 BP 118/80 10/01/24 15:02 Pulse Ox 98 10/01/24 15:02 Oxygen Delivery Method Room Air 10/01/24 15:02 BMI result Body Mass Index 20.8 Tobacco/Smoking Status: Tobacco use Status Tobacco use date assessed 03/17/24 10/01/24 15:02 Patient Tobacco Use Status Former Tobacco user 10/01/24 15:02 Tobacco use type Cigarette 10/01/24 15:02 e-Cigarette/Vaping Use Never Used 10/01/24 15:02 PHQ-9: PHQ-9 Score PHQ-9: Total score 0 10/01/24 15:17 Depression Screening Interpretation: Negative Thrive Assessment: Date of Thrive Assessment Date Thrive assessed 10/01/24 10/01/24 15:07 Currently or been in a relationship where the following occur: No concerns reported Const General: alert; No acute distress Eyes Conjunctivae: conjunctivae normal Resp Auscultation: clear to auscultation bilaterally Cardio Rate: regular rate Rhythm: regular rhythm GI Inspection: Yes normal to inspection Extrem General: Yes normal to inspection and No edema Office Procedures Flu Questionnaire Does the patient have a severe egg allergy?: No Immunizations Fluarix Triv [id number] (PF) 45 mcg (15 mcg x 3)/0.5 mL IM syringe Performing Provider: Payton Eaton MD [facility] [place] Documented (not given) by: LISA Oconnor on 10/01/24 15:07 Reason Not Given: Patient Refused Coding Level of Care Code Est Pt Level 4 (43858) Diagnoses Onychomycosis B35.1 Hypercholesterolemia E78.00 Attention deficit hyperactivity disorder (ADHD), predominantly inattentive type F90.0 Attention deficit-hyperactivity disorder type: predominantly inattentive Hyperactivity presence: present Generalized anxiety disorder F41.1 Additional Codes MIKO-7 Assessment Billing - MIKO-7 Assessment Tool: MIKO-7 Assessment 73677 ([id number]) Assessment & Plan Assessment & Plan (1) Onychomycosis: Code(s): B35.1 - Tinea unguium Category: Medical Plan: Discussion about how to use the ciclopirox nail lacquer and was given instructions (2) Hypercholesterolemia: Code(s): E78.00 - Pure hypercholesterolemia, unspecified Category: Medical Plan: Avoid fried foods, chicken skin, eggs, butter margarine, pastries and meat. Be it pork or beef they have a lot of cholesterol (3) ADD (attention deficit disorder): Comment: has therapist monthly Code(s): F98.8 - Other specified behavioral and emotional disorders with onset usually occurring in childhood and adolescence Category: Medical Qualifiers: Attention deficit-hyperactivity disorder type: predominantly inattentive Hyperactivity presence: present Qualified Code(s): F90.0 - Attention-deficit hyperactivity disorder, predominantly inattentive type Plan: Continue with present medication (4) Generalized anxiety disorder: Comment: Private therapist Code(s): F41.1 - Generalized anxiety disorder Category: Medical Plan: anxiety med given , may cause drowsiness. take as needed only Plan - For onychomycosis: Initiate treatment with ciclopirox topical solution as directed. Apply once daily to affected nails with weekly removal using alcohol. Continue therapy until nail clearance is achieved. - For anxiety: Continue using rescue remedy and other managed oils as needed for acute symptomatic relief. The patient was provided a prescription for as-needed anxiolytic medication to use during high anxiety episodes. She expressed interest in exploring CBD products as an alternative. The importance of self-care strategies, including relaxation techniques and supportive activities such as music therapy, were reinforced. Orders: Orders Influenza [id number] Immunization Today Z23 - Encounter for immunization Medications: New alprazolam 0.25 mg PO BEDTIME PRN 5 tabs 0RF sleep F41.1 - Generalized anxiety disorder
== END 2024-10-01 15:59 | disposition home or self-care (01) ==
PROVIDERS: PCP Internal Medicine; Visit Provider Internal Medicine
DX: B35.1 Tinea unguium (principal); E78.00 Pure hypercholesterolemia, unspecified; F90.0 Attention-deficit hyperactivity disorder, predominantly inattentive type; F41.1 Generalized anxiety disorder; Z23 Encounter for immunization

== ENCOUNTER → 2024-10-01 14:47 | Outpatient (BNVA) | payer OTHER, SELFPAY | PROVIDERS: PCP Internal Medicine; Visit Provider Internal Medicine | DX: B35.1 Tinea unguium (principal); E78.00 Pure hypercholesterolemia, unspecified; F90.0 Attention-deficit hyperactivity disorder, predominantly inattentive type; F41.1 Generalized anxiety disorder; Z28.21 Immunization not carried out because of patient refusal | CPT/HCPCS: 90471; 96127 ==

== ENCOUNTER 2024-10-15 15:36 | Outpatient (AMB) | payer OTHER, SELFPAY ==
[2024-10-15 15:44] VITALS: BP 100/72; PULSE 77; O2SAT 98; BMI 21.0
--- NOTE | 2024-10-15 15:44 | A.OFFPC_ITS ---
Vital Signs 10/15/24 15:44 Height 5 ft 8 in Weight 138 lb 4 oz BMI 21.0 BP 100/72 Blood Pressure Location Lt brachial Position Sitting Pulse 77 Pulse Source Pulse Oximeter Pulse Oximetry (%) 98 Oxygen Delivery Method Room Air Intake Visit Reasons: Ear Pain Environmental Emergencies Planner Required: No Accompanied by: Self / Same As Patient Allergies No Known Allergies Allergy (Verified 10/15/24 15:44) Tobacco use date assessed: 10/15/24 Dental Screening Dental Screen Date: 10/15/24 Did you have a dental visit in the last 12 months?: Yes Did you have a dental problem in the last 6 months where you did not have access to dental care?: No Was dental information given to patient?: Patient has dentist HPI Ear Pain HPI Details The patient is a 44-year-old female presenting with acute ear pain and discomfort localized to the right ear. The symptoms began suddenly at appr oximately 4 AM on the previous day. The patient described the sensation of pressure and discomfort in the right ear, initially suspecting a foreign body intrusion. Upon self-inspection and examination by her with a flashlight, no foreign object was visually identified. Despite this, the sensation persisted throughout the day, worsening when at rest and slightly alleviated with physical activity such as dancing. The patient reported a history of otitis media, including previous tympanostomy tube placement, leaving a residual scar on the posterior eardrum. No prior acute ear trauma was disclosed, and she denied any submersion in water or use of water in the ear. The patient did not report any discharge, tinnitus, or notable hearing loss associated with this episode. She noted some swelling and discomfort when pressure was applied the previous night, though this was less severe at the time of examination. The patient's history reveals that she has had infections previously, suggested by an existing eardrum scar. [facility] Medical History (Updated 10/15/24 @ 15:56 by Payton Eaton MD) Breast cancer screening by mammogram COVID-19 virus infection Leukopenia Allergic rhinitis ADD (attention deficit disorder) Anemia Surgical History History of wisdom tooth extraction Family History Father Hypertension Mother Diabetes Depression Maternal Grandmother Diabetes Maternal Grandfather Diabetes Colon cancer Paternal Grandmother Breast cancer Paternal Grandfather Aneurysm FH: prostate cancer Maternal Uncle Diabetes Family/Other Breast cancer Maternal Grandmother FH: prostate cancer Social History Housing: House Alcohol intake: current Alcohol intake frequency: a few times a month Comment: 2 x a month 2 drinks Patient Tobacco Use Status: Former Tobacco user Tobacco use type: Cigarette Years Smoked: 17 years old x 2 years e-Cigarette/Vaping Use: Never Used Second Hand Smoke Exposure: No service: No Current occupational status: employed Current occupational exposures/hazards: No Cognitive needs: No Hearing needs: No Vision needs: No Questionnaire PHQ-9 Over the last 2 weeks, how often have you been bothered by any of the following problems? 1. Little interest or pleasure in doing things: not at all 2. Feeling down, depressed, or hopeless: not at all 3. Trouble falling or staying asleep, or sleeping too much: not at all 4. Feeling tired or having little energy: not at all 5. Poor appetite or overeating: not at all 6. Feeling bad about yourself - or that you are a failure or have let yourself or your family down: not at all 7. Trouble concentrating on things, such as reading the newspaper or watching television: not at all 8. Moving or speaking so slowly that other people could have noticed. Or the opposite - being so fidgety or restless that you have been moving around a lot more than usual: not at all 9. Thoughts that you would be better off or of hurting yourself in some way: not at all Total score: 0 Depression Screening Interpretation: Negative Depression Screening Done: Yes Source: Developed by Drs. Jay Iverson, Radha Langford, Chito Ortiz and colleagues, with an educational jory from [employer]. Thrive Questionnaire Date Thrive assessed: 10/15/24 I am a: Patient What is your living situation today?: I have a steady place to live Within the past 12 months, did the food you bought not last and you didn't have the money to get more?: Never true Within the past 12 months, did you worry whether your food would run out before you got money to buy more?: Never true Do you have trouble paying for medicines?: No Do you have trouble getting transportation to medical appointments?: No Do you have trouble paying your heating and electricity bill?: No Do you have trouble taking care of your child, family member or friend?: No Do you have trouble with day-to-day activities such as bathing, preparing meals, shopping, managing finances, etc.?: No Are you currently unemployed and looking for a job?: No Are you interested in more education?: No Please select the resources that you would like help with: None Currently or been in a relationship where the following occur: No concerns reported THRIVE Score: 0 AUDIT C Alcohol Use Questionnaire (AUDIT-C) 1. How often do you have a drink containing alcohol?: 2-4 times a month 2. How many drinks containing alcohol do you have on a typical day when you are drinking?: 1 or 2 3. How often do you have six or more drinks on one occasion?: Never Total Score: 2 MIKO-7 AMB Questionnaire MIKO-7 Date MIKO - 7 assessed: 10/15/24 Feeling nervous, anxious, or on edge: 0 = Not at all Not being able to stop or control worryin = Not at all Worrying too much about different things: 0 = Not at all Trouble relaxin = Not at all Being so restless that it is hard to sit still: 0 = Not at all Becoming easily annoyed or irritable: 0 = Not at all Feeling afraid as if something awful might happen: 0 = Not at all Total MIKO-7 score (0-4 normal; 5-9 mild; 10-14 moderate; 15-21 severe): 0 Source: Developed by Drs. Jay Iverson, Radha Langford, Chito Ortiz and colleagues, with an educational jory from [employer]. MIKO-7 Assessment Billing MIKO-7 Assessment Tool: MIKO-7 Assessment 77647 Physical exam (Primary Care) Vital Signs: Last Vital Signs Pulse 77 10/15/24 15:44 BP 100/72 10/15/24 15:44 Pulse Ox 98 10/15/24 15:44 Oxygen Delivery Method Room Air 10/15/24 15:44 BMI result Body Mass Index 21.0 Tobacco/Smoking Status: Tobacco use Status Tobacco use date assessed 10/15/24 10/15/24 15:50 Patient Tobacco Use Status Former Tobacco user 10/15/24 15:50 Tobacco use type Cigarette 10/15/24 15:50 e-Cigarette/Vaping Use Never Used 10/15/24 15:50 PHQ-9: PHQ-9 Score PHQ-9: Total score 0 10/15/24 15:57 Depression Screening Interpretation: Negative Thrive Assessment: Date of Thrive Assessment Date Thrive assessed 10/15/24 10/15/24 15:50 Currently or been in a relationship where the following occur: No concerns reported Coding Level of Care Code Est Pt Level 3 (63418) Diagnoses Otitis externa H60.90 Attention deficit hyperactivity disorder (ADHD), predominantly inattentive type F90.0 Attention deficit-hyperactivity disorder type: predominantly inattentive Hyperactivity presence: present Additional Codes MIKO-7 Assessment Billing - IMKO-7 Assessment Tool: MIKO-7 Assessment 94171 ([id number]) Assessment & Plan Assessment & Plan (1) Otitis externa: Comment: R ear Code(s): H60.90 - Unspecified otitis externa, unspecified ear Category: Medical (2) ADD (attention deficit disorder): Comment: has therapist monthly Code(s): F98.8 - Other specified behavioral and emotional disorders with onset usually occurring in childhood and adolescence Category: Medical Qualifiers: Attention deficit-hyperactivity disorder type: predominantly inattentive Hyperactivity presence: present Qualified Code(s): F90.0 - Attention-deficit hyperactivity disorder, predominantly inattentive type Plan - Prescribe Neomycin and Polymyxin B Sulfates and Hydrocortisone Otic Suspension: Administer 3 to 4 drops to the affected right ear, three times daily for five days. The patient is instructed to maintain the position for 2-3 minutes post-application to ensure adequate absorption. - Educate the patient on avoiding insertion of objects or liquids into the ear canal to prevent exacerbation or recurrence of symptoms. - Consideration for continued monitoring of symptoms, especially if there is no improvement with prescribed treatment, due to history of recurrent ear infections. - Refill Adderall prescription upon patient's request. Medications: New [id number] 3.5-10,000-1 mg/mL-unit/mL-% 4 drps otic (ear) right TID 10 mL 0RF 5 days H60.90 - Unspecified otitis externa, unspecified ear Refilled dextroamphetamine-amphetamine 20 mg ER (Adderall XR) Partial Fill upon patient request. 20 mg PO DAILY 30 caps 0RF F90.0 - Attention-deficit hyperactivity disorder, predominantly inattentive type
== END 2024-10-15 16:14 | disposition home or self-care (01) ==
PROVIDERS: PCP Internal Medicine; Visit Provider Internal Medicine
DX: H60.91 Unspecified otitis externa, right ear (principal); F90.0 Attention-deficit hyperactivity disorder, predominantly inattentive type

== ENCOUNTER → 2024-10-15 15:36 | Outpatient (BNVA) | payer OTHER, SELFPAY | PROVIDERS: PCP Internal Medicine; Visit Provider Internal Medicine | DX: H60.91 Unspecified otitis externa, right ear (principal); F90.0 Attention-deficit hyperactivity disorder, predominantly inattentive type | CPT/HCPCS: 96127 ==

== ENCOUNTER 2024-12-15 13:00 | Outpatient (AMB) | payer OTHER, SELFPAY ==
[2024-12-15 13:02] VITALS: BP 122/78; PULSE 80; O2SAT 98; BMI 20.5
--- NOTE | 2024-12-15 13:02 | MHC.PC.OV ---
Vital Signs 12/15/24 13:02 Height 5 ft 8 in Weight 135 lb BMI 20.5 BP 122/78 Blood Pressure Location Lt brachial Position Sitting Pulse 80 Pulse Source Pulse Oximeter Pulse Oximetry (%) 98 Oxygen Delivery Method Room Air Intake Visit Reasons: 3M Med Follow Up Allergies No Known Allergies Allergy (Verified 12/15/24 13:02) Tobacco use date assessed: 10/15/24 Dental Screening Dental Screen Date: 10/15/24 [facility] Medical History (Updated 12/15/24 @ 15:46 by Payton Eaton MD) Breast cancer screening by mammogram COVID-19 virus infection Leukopenia Allergic rhinitis ADD (attention deficit disorder) Anemia Surgical History History of wisdom tooth extraction Family History Father Hypertension Mother Diabetes Depression Maternal Grandmother Diabetes Maternal Grandfather Diabetes Colon cancer Paternal Grandmother Breast cancer Paternal Grandfather Aneurysm FH: prostate cancer Maternal Uncle Diabetes Family/Other Breast cancer Maternal Grandmother FH: prostate cancer Social History Housing: House Alcohol intake: current Alcohol intake frequency: a few times a month Comment: 2 x a month 2 drinks Patient Tobacco Use Status: Former Tobacco user Tobacco use type: Cigarette Years Smoked: 17 years old x 2 years e-Cigarette/Vaping Use: Never Used Second Hand Smoke Exposure: No service: No Current occupational status: employed Current occupational exposures/hazards: No Cognitive needs: No Hearing needs: No Vision needs: No Questionnaire PHQ-9 Over the last 2 weeks, how often have you been bothered by any of the following problems? 1. Little interest or pleasure in doing things: not at all 2. Feeling down, depressed, or hopeless: not at all 3. Trouble falling or staying asleep, or sleeping too much: not at all 4. Feeling tired or having little energy: not at all 5. Poor appetite or overeating: not at all 6. Feeling bad about yourself - or that you are a failure or have let yourself or your family down: not at all 7. Trouble concentrating on things, such as reading the newspaper or watching television: not at all 8. Moving or speaking so slowly that other people could have noticed. Or the opposite - being so fidgety or restless that you have been moving around a lot more than usual: not at all 9. Thoughts that you would be better off or of hurting yourself in some way: not at all Total score: 0 Depression Screening Interpretation: Negative Depression Screening Done: Yes Source: Developed by Drs. Jay Iverson, Chito Smith and colleagues, with an educational jory from [employer]. Thrive Questionnaire Date Thrive assessed: 10/15/24 MIKO-7 AMB Questionnaire MIKO-7 Date MIKO - 7 assessed: 10/15/24 Source: Developed by Drs. Jay Iverson, Radha Langford, Chito Ortiz and colleagues, with an educational jory from [employer]. Physical exam (Primary Care) Vital Signs: Last Vital Signs Pulse 80 12/15/24 13:02 BP 122/78 12/15/24 13:02 Pulse Ox 98 12/15/24 13:02 Oxygen Delivery Method Room Air 12/15/24 13:02 BMI result Body Mass Index 20.5 Tobacco/Smoking Status: Tobacco use Status Tobacco use date assessed 10/15/24 12/15/24 13:06 Patient Tobacco Use Status Former Tobacco user 12/15/24 13:06 Tobacco use type Cigarette 12/15/24 13:06 e-Cigarette/Vaping Use Never Used 12/15/24 13:06 PHQ-9: PHQ-9 Score PHQ-9: Total score 0 12/15/24 13:34 Depression Screening Interpretation: Negative Thrive Assessment: Date of Thrive Assessment Date Thrive assessed 10/15/24 12/15/24 13:06 Const General: alert; No acute distress Eyes Conjunctivae: conjunctivae normal Resp Auscultation: clear to auscultation bilaterally Cardio Rate: regular rate Rhythm: regular rhythm GI Inspection: Yes normal to inspection Extrem General: Yes normal to inspection and No edema Coding Level of Care Code Est Pt Level 4 (33119) Diagnoses Attention deficit hyperactivity disorder (ADHD), predominantly inattentive type F90.0 Attention deficit-hyperactivity disorder type: predominantly inattentive Hyperactivity presence: present Generalized anxiety disorder F41.1 Hypercholesterolemia E78.00 Breast cancer screening by mammogram Z12.31 Assessment & Plan Assessment & Plan (1) ADD (attention deficit disorder): Comment: has therapist monthly Code(s): F98.8 - Other specified behavioral and emotional disorders with onset usually occurring in childhood and adolescence Category: Medical Qualifiers: Attention deficit-hyperactivity disorder type: predominantly inattentive Hyperactivity presence: present Qualified Code(s): F90.0 - Attention-deficit hyperactivity disorder, predominantly inattentive type (2) Generalized anxiety disorder: Comment: Private therapist Code(s): F41.1 - Generalized anxiety disorder Category: Medical (3) Hypercholesterolemia: Code(s): E78.00 - Pure hypercholesterolemia, unspecified Category: Medical Plan: Avoid fried foods, chicken skin, eggs, butter margarine, pastries and meat. Be it pork or beef they have a lot of cholesterol (4) Breast cancer screening by mammogram: Code(s): Z12.31 - Encounter for screening mammogram for malignant neoplasm of breast Category: Medical Plan: Patient is reminded about the mammogram Plan History of Present Illness The patient is a 44-year-old female presenting with the need for medication refill and management of her chronic conditions, which include attention deficit disorder, generalized anxiety disorder, and hypercholesterolemia. Since her last visit in October, she has lost 3 pounds, attributed to the elimination of sweets from her meals. The patient is encountering some difficulties with the transmission of her prescription orders to her pharmacy. Additionally, the patient describes her current high stress level due to extensive familial obligations. She is managing her father's property affairs in [place] and supporting her sister, who recently left a distressful relationship. Despite these stressors, she maintains that her blood pressure remains stable and refrains from reporting any exacerbation of her existing medical conditions. A mammogram is due, and blood work has not been recent in 2022, indicating areas of pending health maintenance. Health Maintenance - Mammogram is due. - Blood work needs to be updated as last conducted prior to 2022. - Maintained a health-focused diet with reduced sweets intake, resulting in weight loss. Social History - Responsible for managing her father's property while he is in [place]. - Providing substantial support to her sister following her exit from a difficult relationship. - Mother of children whom she routinely manages alongside familial obligations. - Reports considerable stress due to familial pressures and obligations. Review of Systems - General: Reports recent 3-pound weight loss. - Psychiatric: Reports increased stress related to family obligations. Physical Exam - Cardiovascular- Blood pressure reported as well controlled. - Pulmonary- Regular breathing observed. - ENT- No reported issues with hearing. Results Plan The patient's ADD prescription was re-submitted to the pharmacy, with follow-up needed to verify successful transmission and receipt. Stress management strategies for her MIKO should be reinforced given recent family-induced stress. Her hypercholesterolemia management benefits from her recent dietary changes, and maintaining these is advisable. Coordination for a pending mammogram and updated blood work is recommended to address gaps in her preventive care. Consideration for supportive measures or counseling related to stress management is advised due to her significant familial pressures. Patient was informed and verbally consented to the use of an ambient scribe for clinic note documentation during this visit. Discussion Notes During the consultation, I reconfirmed the patient's ADD prescription was processed and discussed extending stress management strategies to aid in managing her MIKO amidst her stressful family circumstances. The positive outcomes of reducing sweet intake on her cholesterol levels were acknowledged, and I underscored the importance of continuing these nutritional changes. I advised the patient about the need for an updated mammogram and blood tests to meet health maintenance protocols. The interaction included reminders about maintaining a balanced personal and professional life amidst familial obligations, and the benefits of potentially engaging in counseling services to address stress management. Follow-up was recommended for changes in her stress levels or any exacerbation in her chronic conditions. Patient Instructions - Verify receipt of your ADD medication with the pharmacy. - Continue the reduced intake of sweets and maintain your dietary improvements. - Schedule your mammogram and arrange for updated blood tests soon. - Consider implementing relaxation techniques or seeking support to manage your stress. - Be alert to changes in health and report any new symptoms or concerns as they arise.
== END 2024-12-15 13:45 | disposition home or self-care (01) ==
LOC: HO.HMCH 13:01
PROVIDERS: PCP Internal Medicine; Visit Provider Internal Medicine
DX: F90.0 Attention-deficit hyperactivity disorder, predominantly inattentive type (principal); F41.1 Generalized anxiety disorder; E78.00 Pure hypercholesterolemia, unspecified; Z12.31 Encounter for screening mammogram for malignant neoplasm of breast

== ENCOUNTER 2025-03-28 11:31 | Outpatient (AMB) | payer OTHER, SELFPAY ==
[2025-03-28 11:35] VITALS: BP 108/74; PULSE 84; TEMP 36.4; O2SAT 98; BMI 19.8
--- NOTE | 2025-03-28 11:35 | A.OFFPC_ITS ---
Vital Signs 03/28/25 11:35 Height 5 ft 8 in Weight 130 lb BMI 19.8 BP 108/74 Blood Pressure Location Lt brachial Position Sitting Pulse 84 Pulse Source Pulse Oximeter Temp 97.5 F Temp Source Temporal Artery Scan Pulse Oximetry (%) 98 Oxygen Delivery Method Room Air Intake Visit Reasons: PE- see comments Allergies No Known Allergies Allergy (Verified 03/28/25 11:39) Medication List - Last Reconciled 03/28/25 by Payton Eaton MD alprazolam 0.25 mg PO BEDTIME PRN ascorbate calcium (vitamin C) 500 mg PO DAILY dextroamphetamine-amphetamine 20 mg ER (Adderall XR) 20 mg PO DAILY ferrous sulfate (Feosol) 325 mg PO DAILY [GYMEMMA ] [KAVA KAVA ] loratadine (Claritin) 10 mg PO DAILY PRN multivitamin 1 tab PO DAILY [RESCUE REMEDY ] vitamin D3-vitamin K2 (MK4) 1,000-100 unit-mcg 1 tab PO DAILY Tobacco use date assessed: 03/28/25 Dental Screening Dental Screen Date: 03/28/25 Did you have a dental visit in the last 12 months?: Yes Did you have a dental problem in the last 6 months where you did not have access to dental care?: No Was dental information given to patient?: Patient has dentist [facility] Medical History Breast cancer screening by mammogram COVID-19 virus infection Leukopenia Allergic rhinitis ADD (attention deficit disorder) Anemia Surgical History History of wisdom tooth extraction Family History Father Hypertension Mother Diabetes Depression Maternal Grandmother Diabetes Maternal Grandfather Diabetes Colon cancer Paternal Grandmother Breast cancer Paternal Grandfather Aneurysm FH: prostate cancer Maternal Uncle Diabetes Family/Other Breast cancer Maternal Grandmother FH: prostate cancer Social History Housing: House Alcohol intake: current Alcohol intake frequency: a few times a month Comment: 2 x a month 2 drinks Patient Tobacco Use Status: Former Tobacco user Tobacco use type: Cigarette Years Smoked: 17 years old x 2 years e-Cigarette/Vaping Use: Never Used Second Hand Smoke Exposure: No service: No Current occupational status: employed Current occupational exposures/hazards: No Cognitive needs: No Hearing needs: No Vision needs: No Questionnaire PHQ-9 Over the last 2 weeks, how often have you been bothered by any of the following problems? 1. Little interest or pleasure in doing things: not at all 2. Feeling down, depressed, or hopeless: not at all 3. Trouble falling or staying asleep, or sleeping too much: not at all 4. Feeling tired or having little energy: not at all 5. Poor appetite or overeating: not at all 6. Feeling bad about yourself - or that you are a failure or have let yourself or your family down: not at all 7. Trouble concentrating on things, such as reading the newspaper or watching television: not at all 8. Moving or speaking so slowly that other people could have noticed. Or the opposite - being so fidgety or restless that you have been moving around a lot more than usual: not at all 9. Thoughts that you would be better off or of hurting yourself in some way: not at all Total score: 0 Depression Screening Interpretation: Negative Depression Screening Done: Yes 88205 - PHQ-9 Billing: Yes Source: Developed by Drs. Jay Iverson, Radha Langford, Chito Ortiz and colleagues, with an educational jory from [employer]. Thrive Questionnaire Date Thrive assessed: 03/28/25 I am a: Patient What is your living situation today?: I have a steady place to live Within the past 12 months, did the food you bought not last and you didn't have the money to get more?: Never true Within the past 12 months, did you worry whether your food would run out before you got money to buy more?: Never true Do you have trouble paying for medicines?: No Do you have trouble getting transportation to medical appointments?: No Do you have trouble paying your heating and electricity bill?: No Do you have trouble taking care of your child, family member or friend?: No Do you have trouble with day-to-day activities such as bathing, preparing meals, shopping, managing finances, etc.?: No Are you currently unemployed and looking for a job?: No Are you interested in more education?: I choose not to answer this question Please select the resources that you would like help with: None Currently or been in a relationship where the following occur: No concerns reported THRIVE Score: 0 AUDIT C Alcohol Use Questionnaire (AUDIT-C) 1. How often do you have a drink containing alcohol?: 2-4 times a month 2. How many drinks containing alcohol do you have on a typical day when you are drinking?: 1 or 2 3. How often do you have six or more drinks on one occasion?: Never Total Score: 2 MIKO-7 AMB Questionnaire MIKO-7 Date MIKO - 7 assessed: 03/28/25 Feeling nervous, anxious, or on edge: 0 = Not at all Not being able to stop or control worryin = Not at all Worrying too much about different things: 0 = Not at all Trouble relaxin = Not at all Being so restless that it is hard to sit still: 0 = Not at all Becoming easily annoyed or irritable: 0 = Not at all Feeling afraid as if something awful might happen: 0 = Not at all Total MIKO-7 score (0-4 normal; 5-9 mild; 10-14 moderate; 15-21 severe): 0 Source: Developed by Drs. Jay Iverson, Radha Langford, Chito Ortiz and colleagues, with an educational jory from [employer]. MIKO-7 Assessment Billing MIKO-7 Assessment Tool: MIKO-7 Assessment 10069 Review of Systems Const Denies poor appetite and Denies weakness Eyes Denies no additional complaints ENT Reports Normal hearing present, Denies dizziness, Denies nasal congestion, Denies tinnitus and Denies sore throat Card Denies chest pain, Denies syncope, Denies rapid heart rate and Denies dyspnea Resp Denies cough and Denies dyspnea GI Denies change in stool character, Reports constipation, Denies diarrhea, Denies nausea and Denies vomiting Denies urinary frequency, Denies difficulty voiding and Denies dysuria Neuro Reports Normal hearing present, Denies confusion, Denies dizziness, Denies syncope and Denies weakness Psych Denies confusion Physical exam (Primary Care) Vital Signs: Last Vital Signs Temp 97.5 F 03/28/25 11:35 Pulse 84 03/28/25 11:35 BP 108/74 03/28/25 11:35 Pulse Ox 98 03/28/25 11:35 Oxygen Delivery Method Room Air 03/28/25 11:35 BMI result Body Mass Index 19.8 Tobacco/Smoking Status: Tobacco use Status Tobacco use date assessed 03/28/25 03/28/25 11:42 Patient Tobacco Use Status Former Tobacco user 03/28/25 11:42 Tobacco use type Cigarette 03/28/25 11:42 e-Cigarette/Vaping Use Never Used 03/28/25 11:42 PHQ-9: PHQ-9 Score PHQ-9: Total score 0 03/28/25 12:29 Depression Screening Interpretation: Negative Thrive Assessment: Date of Thrive Assessment Date Thrive assessed 03/28/25 03/28/25 11:42 Currently or been in a relationship where the following occur: No concerns reported Const General: No confusion Orientation/consciousness: No confusion HENMT Head: Yes normocephalic Ears: external ears normal and TM's normal bilaterally Face and sinus: Yes normal facial exam Mouth: moist mucous membranes Throat: Yes tonsils normal Eyes Conjunctivae: conjunctivae normal Pupils: Equal, round and reactive pupils present and Pupil accommodation reflex normal Direct Ophthalmoscopy: normal light reflex Neck Neck: No lymphadenopathy Thyroid: Thyroid normal Chest Chest palpation & inspection: normal inspection of the chest Resp Effort & Inspection: normal respiratory effort and no audible wheezes Auscultation: clear to auscultation bilaterally, no crackles, no wheezes and lung sounds not diminished Cardio Rate: regular rate Rhythm: regular rhythm Peripheral pulses: radial pulses present and dorsalis pedis present GI Palpation (GI): no masses Auscultation: normal bowel sounds and normoactive bowel sounds Rectal Exam - Female: deferred Skin General skin exam: no rashes or lesions noted Rashes: no rashes Neuro General: No confusion Cranial nerves: Yes Equal, round and reactive pupils present and Yes Normal hearing present Cognition (Neuro): normal cognition Gait exam (Neuro): Normal gait present Motor exam (neuro): 5/5 motor strength present throughout Deep tendon reflexes (DTR's): Right brachioradialis reflex intensity grade: 2+, Left brachioradialis reflex intensity grade: 2+, Right patellar reflex intensity grade: 2+ and Left patellar reflex intensity grade: 2+ Extrem General: No edema Immunizations Tenivac (PF) 5 Lf unit-2 Lf unit/0.5 mL intramuscular suspension Performing Provider: Payton Eaton MD Performing Location: [facility] Administered by: Amina Corona CMA on 03/28/25 12:27 Dose Route Admin Location Dispensed Lot Number Expiration Date [employer] 0.5 mL IM Left Deltoid 0.5 mL [id number] 12/04/26 [id number] [employer] Total Dispensed Waste 0.5 mL 0 % VIS Given Date VIS Provided VIS Publication Date 03/28/25 Single Vaccine 21 Eligibility Eligibility Date Funding Source Not [facility] Eligible 03/28/25 Private Coding Level of Care Code Est Pt Prev Care 40-64y(93008) Diagnoses Annual physical exam Z00.00 Hypercholesterolemia E78.00 Generalized anxiety disorder F41.1 Attention deficit hyperactivity disorder (ADHD), predominantly inattentive type F90.0 Attention deficit-hyperactivity disorder type: predominantly inattentive Hyperactivity presence: present Additional Codes MIKO-7 Assessment Billing - MIKO-7 Assessment Tool: MIKO-7 Assessment 80849 ([id number]) PHQ-9 - 88060 - PHQ-9 Billing: Yes ([id number]) Assessment & Plan Assessment & Plan (1) Annual physical exam: Code(s): Z00.00 - Encounter for general adult medical examination without abnormal findings Category: Medical Plan: Patient is advised to eat healthy, keep well hydrated, keep active and have adequate sleep. (2) Hypercholesterolemia: Code(s): E78.00 - Pure hypercholesterolemia, unspecified Category: Medical Plan: Avoid fried foods, chicken skin, eggs, butter margarine, pastries and meat. Be it pork or beef they have a lot of cholesterol (3) Generalized anxiety disorder: Comment: Private therapist Code(s): F41.1 - Generalized anxiety disorder Category: Medical Plan: Continue with present medication as needed (4) ADD (attention deficit disorder): Comment: has therapist monthly Code(s): F98.8 - Other specified behavioral and emotional disorders with onset usually occurring in childhood and adolescence Category: Medical Qualifiers: Attention deficit-hyperactivity disorder type: predominantly inattentive Hyperactivity presence: present Qualified Code(s): F90.0 - Attention-deficit hyperactivity disorder, predominantly inattentive type Plan: Continue with counseling and therapy Plan History of Present Illness The patient is a 44-year-old female presenting for a physical examination and management of chronic conditions. She has a history of Attention Deficit Disorder (ADD) and chronic sinusitis, which have been ongoing concerns. Her hypercholesterolemia is being monitored, with the last LDL cholesterol level recorded at 135 mg/dL. The patient reports a recent unintentional weight loss, with her Body Mass Index (BMI) decreasing to 19, which is below the standard range for her height. She has incorporated a weightlifting class into her routine and denies any dizziness or appetite issues. Her family history is significant for colon cancer in her grandfather and breast cancer in her grandmother, who developed it in her 70s. The patient is currently taking Adderall for ADD, along with iron supplements, loratadine, multivitamins, vitamin D, and alprazolam as needed. She has stopped taking biotin recently. Her last blood work in 2022 showed normal blood counts with mild echopenia, normal electrolytes, renal function, blood sugar, liver function, and vitamin levels. Health Maintenance - Mammogram up to date as of December 2024 - Tetanus vaccination due, last received in 2013 Social History - Exercise: Engages in weightlifting classes - Alcohol use: Occasional, varies with social activities - Tobacco use: Denies - Recreational drug use: Denies - Stress management: Plays DTT as a therapeutic outlet Review of Systems - General: Denies dizziness, reports good appetite - Cardiovascular: Denies chest pain, shortness of breath, or heartburn - Gastrointestinal: Reports normal bowel movements, denies nausea or vomiting - Neurological: Denies dizziness, reports no issues with balance - Respiratory: Denies dyspnea or cough - HEENT: Reports no issues with swallowing, denies hearing problems Physical Exam General: Cooperative, healthy appearing, comfortable, no acute distress and well developed Orientation: Patient oriented x3 Limitations: No limitations Head: Normal to inspection Ears: Hearing grossly normal bilaterally Nose: Normal external nose present Face and sinus: Normal facial exam Eyes: Appearance normal, both eyes and all related structures Neck: Normal visual inspection and Yes full ROM Respiratory: Normal respiratory effort and able to speak in complete sentences. Clear to auscultation bilaterally Cardiovascular: Regular rate and rhythm. Normal S1 and S2 GI: Normal to inspection. Soft to palpation and nontender Skin: No rashes or lesions noted Neuro: Patient oriented x3 Extremities: Normal to inspection Results - Labs: Normal blood count with mild echopenia, normal electrolytes, renal function, blood sugar, liver function, and vitamin levels as of 2022 - Cholesterol: LDL level at 135 mg/dL Plan The patient will continue with her current medications, including Adderall for ADD, and maintain her exercise routine, which includes weightlifting classes. A blood work request has been placed to update her lab results, given the last complete blood work was in 2022. She is advised to receive a tetanus booster, as her last vaccination was in 2013. The patient is encouraged to continue her stress management techniques, such as playing the guitar, and to maintain adequate hydration. Patient was informed and verbally consented to the use of an ambient scribe for clinic note documentation during this visit. Discussion Notes During the visit, we discussed the importance of maintaining her current medication regimen and exercise routine to manage her chronic conditions effectively. I recommended updating her blood work to ensure all parameters are within normal limits and advised her to receive a tetanus booster, as it is due. We also talked about the benefits of her stress management activities, such as playing the guitar, and the need to stay well-hydrated. Patient Instructions - Continue taking prescribed medications, including Adderall. - Maintain your exercise routine, including weightlifting classes. - Schedule and complete your blood work as requested. - Receive your tetanus booster shot. - Keep practicing stress management techniques, such as playing the guitar. - Ensure adequate hydration daily. Orders: Orders Td Immunization Today Z23 - Encounter for immunization
== END 2025-03-28 12:34 | disposition home or self-care (01) ==
LOC: HO.HMCH 11:32
PROVIDERS: PCP Internal Medicine; Visit Provider Internal Medicine
DX: Z00.00 Encounter for general adult medical examination without abnormal findings (principal); E78.00 Pure hypercholesterolemia, unspecified; F41.1 Generalized anxiety disorder; F90.0 Attention-deficit hyperactivity disorder, predominantly inattentive type; Z23 Encounter for immunization

== ENCOUNTER → 2025-03-28 11:31 | Outpatient (BNVA) | payer OTHER, SELFPAY | PROVIDERS: PCP Internal Medicine; Visit Provider Internal Medicine | DX: Z00.00 Encounter for general adult medical examination without abnormal findings (principal); E78.00 Pure hypercholesterolemia, unspecified; F41.1 Generalized anxiety disorder; F90.0 Attention-deficit hyperactivity disorder, predominantly inattentive type; J32.9 Chronic sinusitis, unspecified; R63.4 Abnormal weight loss; Z68.1 Body mass index [BMI] 19.9 or less, adult; Z23 Encounter for immunization | CPT/HCPCS: 90471; 90714; 96127 ==

== ENCOUNTER 2025-06-17 11:08 | Outpatient (AMB) | payer OTHER, SELFPAY ==
--- NOTE | 2025-06-17 11:10 | MHC.PC.OV ---
Intake Visit Reasons: Med Follow Up Allergies No Known Allergies Allergy (Verified 06/17/25 11:11) Medication List - Last Reconciled 06/17/25 by Payton Eaton MD ascorbate calcium (vitamin C) 500 mg PO DAILY dextroamphetamine-amphetamine 20 mg ER (Adderall XR) 20 mg PO DAILY ferrous sulfate (Feosol) 325 mg PO DAILY [GYMEMMA ] [KAVA KAVA ] loratadine (Claritin) 10 mg PO DAILY PRN multivitamin 1 tab PO DAILY [RESCUE REMEDY ] vitamin D3-vitamin K2 (MK4) 1,000-100 unit-mcg 1 tab PO DAILY Tobacco use date assessed: 03/28/25 Dental Screening Dental Screen Date: 03/28/25 [facility] Medical History Breast cancer screening by mammogram COVID-19 virus infection Leukopenia Allergic rhinitis ADD (attention deficit disorder) Anemia Surgical History History of wisdom tooth extraction Family History Father Hypertension Mother Diabetes Depression Maternal Grandmother Diabetes Maternal Grandfather Diabetes Colon cancer Paternal Grandmother Breast cancer Paternal Grandfather Aneurysm FH: prostate cancer Maternal Uncle Diabetes Family/Other Breast cancer Maternal Grandmother FH: prostate cancer Social History Housing: House Alcohol intake: current Alcohol intake frequency: a few times a month Comment: 2 x a month 2 drinks Patient Tobacco Use Status: Former Tobacco user Tobacco use type: Cigarette Years Smoked: 17 years old x 2 years e-Cigarette/Vaping Use: Never Used Second Hand Smoke Exposure: No service: No Current occupational status: employed Current occupational exposures/hazards: No Cognitive needs: No Hearing needs: No Vision needs: No Questionnaire PHQ-9 Over the last 2 weeks, how often have you been bothered by any of the following problems? 1. Little interest or pleasure in doing things: not at all 2. Feeling down, depressed, or hopeless: not at all 3. Trouble falling or staying asleep, or sleeping too much: not at all 4. Feeling tired or having little energy: not at all 5. Poor appetite or overeating: not at all 6. Feeling bad about yourself - or that you are a failure or have let yourself or your family down: not at all 7. Trouble concentrating on things, such as reading the newspaper or watching television: not at all 8. Moving or speaking so slowly that other people could have noticed. Or the opposite - being so fidgety or restless that you have been moving around a lot more than usual: not at all 9. Thoughts that you would be better off or of hurting yourself in some way: not at all Total score: 0 Depression Screening Interpretation: Negative Depression Screening Done: Yes Source: Developed by Drs. Jay Iverson, Radha Langford, Chito Ortiz and colleagues, with an educational jory from [employer]. Thrive Questionnaire Date Thrive assessed: 03/28/25 MIKO-7 AMB Questionnaire MIKO-7 Date MIKO - 7 assessed: 03/28/25 Source: Developed by Drs. Jay Iverson, Radha Langford, Chito Ortiz and colleagues, with an educational jory from [employer]. Physical exam (Primary Care) Tobacco/Smoking Status: Tobacco use Status Tobacco use date assessed 03/28/25 06/17/25 11:11 Patient Tobacco Use Status Former Tobacco user 06/17/25 11:11 Tobacco use type Cigarette 06/17/25 11:11 e-Cigarette/Vaping Use Never Used 06/17/25 11:11 PHQ-9: PHQ-9 Score PHQ-9: Total score 0 06/17/25 11:56 Depression Screening Interpretation: Negative Thrive Assessment: Date of Thrive Assessment Date Thrive assessed 03/28/25 06/17/25 11:11 Telehealth Telehealth Location of provider rendering services: practice address Location of patient: address on file Patient Identification confirmed using: Name, : Yes Telehealth method: video (Iphone) Patient verbally consented to treatment: Yes Patient verbally consented to billing insurance company: Yes Patient informed of any privacy concerns related to visit: Yes Minutes spent on Phone/Video with Pt.: 25 Coding Level of Care Code Tele Est Pt Level 4 (88948) Diagnoses Attention deficit hyperactivity disorder (ADHD), predominantly inattentive type F90.0 Attention deficit-hyperactivity disorder type: predominantly inattentive Hyperactivity presence: present Generalized anxiety disorder F41.1 Hypercholesterolemia E78.00 Assessment & Plan Assessment & Plan (1) ADD (attention deficit disorder): Comment: has therapist monthly Code(s): F98.8 - Other specified behavioral and emotional disorders with onset usually occurring in childhood and adolescence Category: Medical Qualifiers: Attention deficit-hyperactivity disorder type: predominantly inattentive Hyperactivity presence: present Qualified Code(s): F90.0 - Attention-deficit hyperactivity disorder, predominantly inattentive type Plan: Continue with present medication continue with counseling and therapy (2) Generalized anxiety disorder: Comment: Private therapist Code(s): F41.1 - Generalized anxiety disorder Category: Medical Plan: Continue with counseling and therapy. (3) Hypercholesterolemia: Code(s): E78.00 - Pure hypercholesterolemia, unspecified Category: Medical Plan: Avoid fried foods, chicken skin, eggs, butter margarine, pastries and meat. Be it pork or beef they have a lot of cholesterol LDL goal of less than 130 and triglyceride of less than 150. Option of rechecking blood work Plan History of Present Illness The patient is a 44-year-old female presenting for a follow-up visit through telehealth. She has a history of Attention Deficit Disorder (ADD) and Generalized Anxiety Disorder, for which she continues with counseling and therapy. Her medication regimen includes Adderall, and she has discontinued alprazolam. The patient also has hypercholesterolemia, with her last blood work in April 2023 showing an LDL cholesterol level of 135 mg/dL. Her cholesterol management plan includes maintaining an LDL goal of less than 130 mg/dL and triglycerides of less than 150 mg/dL. Preventative care measures include an up-to-date mammogram as of December 2024. Review of Systems Plan Patient was informed and verbally consented to the use of an ambient scribe for clinic note documentation during this visit. 1. Attention Deficit Disorder (Add) The patient will continue with her current medication regimen, including Adderall, and ongoing counseling and therapy. 2. Generalized Anxiety Disorder The patient will continue with counseling and therapy, and has discontinued alprazolam. 3. Hypercholesterolemia The patient is advised to maintain an LDL cholesterol goal of less than 130 mg/dL and triglycerides of less than 150 mg/dL. Rechecking blood work is recommended to monitor cholesterol levels. Discussion Notes During the visit, we discussed the continuation of the patient's current medication regimen for ADD and anxiety, including Adderall and ongoing therapy. We also reviewed her cholesterol management plan, emphasizing the importance of maintaining LDL levels below 130 mg/dL and triglycerides below 150 mg/dL. The patient was advised to recheck her blood work to monitor cholesterol levels and was reminded of the importance of preventative care, including her up-to-date mammogram. Patient Instructions - Continue current medications, including Adderall. - Continue with counseling and therapy sessions. - Aim to maintain LDL cholesterol below 130 mg/dL and triglycerides below 150 mg/dL. - Schedule a follow-up blood test to monitor cholesterol levels. - Keep up with preventative care, including regular mammograms.
== END 2025-06-17 12:41 | disposition home or self-care (01) ==
LOC: HO.HMCH 11:08
PROVIDERS: PCP Internal Medicine; Visit Provider Internal Medicine
DX: F90.0 Attention-deficit hyperactivity disorder, predominantly inattentive type (principal); F41.1 Generalized anxiety disorder; E78.00 Pure hypercholesterolemia, unspecified

== ENCOUNTER 2025-09-16 10:39 | Outpatient (AMB) | payer OTHER, SELFPAY ==
--- NOTE | 2025-09-16 10:39 | A.OFFPC_ITS ---
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 Accompanied by: Self / Same As Patient Allergies No Known Allergies Allergy (Verified 09/16/25 10:40) Medication List - Last Reconciled 09/16/25 by Randa Solis PA-C ascorbate calcium (vitamin C) 500 mg PO DAILY dextroamphetamine-amphetamine 20 mg ER (Adderall XR) 20 mg PO DAILY ferrous sulfate (Feosol) 325 mg PO DAILY [GYMEMMA ] [KAVA KAVA ] loratadine (Claritin) 10 mg PO DAILY PRN multivitamin 1 tab PO DAILY [RESCUE REMEDY ] vitamin D3-vitamin K2 (MK4) 1,000-100 unit-mcg 1 tab PO DAILY Tobacco use date assessed: 03/28/25 Dental Screening Dental Screen Date: 03/28/25 HPI 3 month f/u HPI Details 45-year-old female with past medical his tory of ADD, generalized anxiety disorder, eczema, hypercholesterolemia last seen 06/30 presenting via telehealth for follow up. Patient tells us today she has been doing well on the Adderall and has been on this medication for a few years. She feels the dose she is at as an effective dose for her attention and concentration. She still follows with a counselor as needed for anxiety and depression but feels she needs it lasts. She has no acute concerns today [facility] Medical History Breast cancer screening by mammogram COVID-19 virus infection Leukopenia Allergic rhinitis ADD (attention deficit disorder) Anemia Surgical History History of wisdom tooth extraction Family History Father Hypertension Mother Diabetes Depression Maternal Grandmother Diabetes Maternal Grandfather Diabetes Colon cancer Paternal Grandmother Breast cancer Paternal Grandfather Aneurysm FH: prostate cancer Maternal Uncle Diabetes Family/Other Breast cancer Maternal Grandmother FH: prostate cancer Social History Housing: House Alcohol intake: current Alcohol intake frequency: a few times a month Comment: 2 x a month 2 drinks Patient Tobacco Use Status: Former Tobacco user Tobacco use type: Cigarette Years Smoked: 17 years old x 2 years e-Cigarette/Vaping Use: Never Used Second Hand Smoke Exposure: Yes service: No Current occupational status: employed Current occupational exposures/hazards: No Cognitive needs: No Hearing needs: No Vision needs: No Questionnaire Thrive Questionnaire Date Thrive assessed: 03/28/25 MIKO-7 AMB Questionnaire MIKO-7 Date MIKO - 7 assessed: 03/28/25 Source: Developed by Drs. Jay Iverson, Radha Langford, Chito Ortiz and colleagues, with an educational jory from [facility] [employer] [employer]. Review of Systems Const Denies body aches, Denies chills, Denies fever(s) and Denies headache(s) Eyes Reports no additional complaints ENT Denies dizziness and Denies headache(s) Card Denies chest pain, Denies irregular heart rhythm, Denies lightheadedness and Denies palpitations Resp Denies cough Neuro Denies dizziness and Denies headache(s) Endo Denies palpitations Physical exam (Primary Care) Vital Signs: Physical exam and vital signs not performed due to nature of telehealth visit Tobacco/Smoking Status: Tobacco use Status Tobacco use date assessed 03/28/25 09/16/25 10:42 Patient Tobacco Use Status Former Tobacco user 09/16/25 10:42 Tobacco use type Cigarette 09/16/25 10:42 e-Cigarette/Vaping Use Never Used 09/16/25 10:42 Thrive Assessment: Date of Thrive Assessment Date Thrive assessed 03/28/25 09/16/25 10:42 Telehealth Telehealth Telehealth Platform: Telephone Location of provider rendering services: practice address Location of patient: address on file Patient Identification confirmed using: Name, : Yes Telehealth method: voice only Patient verbally consented to treatment: Yes Patient verbally consented to billing insurance company: Yes Patient informed of any privacy concerns related to visit: Yes Coding Level of Care Code Tele Est Pt Level 3 (34464) Diagnoses Attention deficit hyperactivity disorder (ADHD), predominantly inattentive type F90.0 Hyperactivity presence: present Attention deficit-hyperactivity disorder type: predominantly inattentive Generalized anxiety disorder F41.1 Hypercholesterolemia E78.00 Assessment & Plan Assessment & Plan (1) ADD (attention deficit disorder): Comment: has therapist monthly Code(s): F98.8 - Other specified behavioral and emotional disorders with onset usually occurring in childhood and adolescence Category: Medical Qualifiers: Hyperactivity presence: present Attention deficit-hyperactivity disorder type: predominantly inattentive Qualified Code(s): F90.0 - Attention- deficit hyperactivity disorder, predominantly inattentive type Plan: Continue with present medication continue with counseling and therapy. Has been doing well on this medication and she will follow up in 3 months for med check (2) Generalized anxiety disorder: Comment: Private therapist Code(s): F41.1 - Generalized anxiety disorder Category: Medical Plan: Continue to follow with counselor as needed (3) Hypercholesterolemia: Code(s): E78.00 - Pure hypercholesterolemia, unspecified Category: Medical Plan: Avoid fried foods, chicken skin, eggs, butter margarine, pastries and meat. Be it pork or beef they have a lot of cholesterol LDL goal of less than 130 and triglyceride of less than 150. Reminded patient about blood work Plan This note was constructed using voice recognition software. While every effort has been made to ensure accuracy and associate biological sales, still areas may have been included sometimes these areas may affect the content or meeting of the given symptoms. Total time spent caring for the patient today was 15 minutes. This includes time spent before the visit reviewing the chart, time spent during the visit, and time spent after the visit and documentation. Orders: Orders Lipid Panel Today E78.00 - Pure hypercholesterolemia, unspecified TSH reflex Free T4 Today Z13.29 - Encounter for screening for other suspected endocrine disorder Vitamin B12 and Folate Today Z13.21 - Encounter for screening for nutritional disorder Complete Blood Count Auto Diff Today Z13.0 - Encounter for screening for diseases of the blood and blood-forming organs and certain disorders involving the immune mechanism Vitamin D 25-OH Total Today Z13.21 - Encounter for screening for nutritional disorder UA CC w/rflx Micro + Cult Today R35.89 - Other polyuria Comprehensive Met. Panel Today Z00.00 - Encounter for general adult medical examination without abnormal findings
== END 2025-09-16 10:59 | disposition home or self-care (01) ==
LOC: HO.HMCH 10:39
PROVIDERS: PCP Internal Medicine
DX: F90.0 Attention-deficit hyperactivity disorder, predominantly inattentive type (principal); F41.1 Generalized anxiety disorder; E78.00 Pure hypercholesterolemia, unspecified